=== PATIENT | female | born 1960 | race Caucasian/White ===

== ENCOUNTER 2018-10-31 04:03 | Emergency (ER) | payer BC ==
[2018-10-31] MEDS ORDERED: NA CHLORIDE 0.9% 1,000 ML ONE (04:39)
[2018-10-31 05:20] LABS: Absolute Lymphocytes (CBC) 1.2 K/uL (0.7-4.9); Absolute Monocytes 0.5 K/uL (0.1-1.3); Absolute Neutrophil 8.1 K/uL (1.8-8.0); Basophils % 0.6 % (0-1.3); Hematocrit 41.2 % (36.0-45.0); Lymphocytes % 12.2 % (15.3-44.8); MCH 33.5 pg (27.0-35.0); MCV 98.4 fL (80-100); MPV 9.6 fL (7.6-11.3); Monocytes % 5.3 % (3.3-12.3); RBC Red Blood Cell Count 4.18 M/uL (3.86-4.86)
[2018-10-31 05:44] LABS: Potassium 4.7 mmol/L (3.5-5.1)
--- NOTE | 2018-10-31 05:49 | ER ---
Nurse's Notes [facility] Name: Heather Dexter Age: 58 yrs Sex: Female : 1960 Arrival Date: 10/31/2018 Time: 04:04 Bed 7 Private MD: Diagnosis: Hyperglycemia, unspecified Presentation: 10/31 04:20 Presenting complaint: Patient states: Patient reports her blood sugar was 336 this AM, ea reports she has been eating too many carbs, hasn't been sleeping and received Cortizone shots yesterday. Transition of care: patient was not received from another setting of care. Onset of symptoms was October 31, 2018. Risk Assessment: Do you want to hurt yourself or someone else? Patient reports no desire to harm self or others. Initial Sepsis Screen: Does the patient meet any 2 criteria? No. Patient's initial sepsis screen is negative. Does the patient have a suspected source of infection? No. Patient's initial sepsis screen is negative. Care prior to arrival: None. 04:20 Method Of Arrival: Ambulatory ea 04:20 Acuity: MOISÉS 4 ea Triage Assessment: 04:24 General: Appears in no apparent distress. Behavior is calm, cooperative, appropriate ea for age. Pain: Denies pain. Neuro: Level of Consciousness is awake, alert, obeys commands, Oriented to person, place, time, situation. Cardiovascular: Patient's skin is warm and dry. Respiratory: Airway is patent Respiratory effort is even, unlabored, Respiratory pattern is regular, symmetrical. Respiratory:. GI: No signs and/or symptoms were reported involving the gastrointestinal system. Derm: Skin is pink, warm \T\ dry. Musculoskeletal: Circulation, motion, and sensation intact. Historical: - Allergies: 04:24 meperidine HCl; ea 04:24 PENICILLINS; ea 04:24 sulfamethoxazole; ea 04:24 sulfamethoxazole-trimethoprim; ea 04:24 TRIMETHOPRIM; ea - Home Meds: 04:24 lisinopril 10 mg Oral tab 1 tab once daily [Active]; Janumet 100-1,000 Oral 1 tab daily ea [Active]; - PMHx: 04:24 Hypertension; Diabetes - NIDDM; ea - PSHx: 04:24 None; ea - Immunization history:: Adult Immunizations up to date. - Social history:: Smoking status: Patient/guardian denies using tobacco. - Ebola Screening: : No symptoms or risks identified at this time. Screenin:26 Abuse screen: Denies threats or abuse. Nutritional screening: No deficits noted. ea Tuberculosis screening: No symptoms or risk factors identified. Fall Risk None identified. Assessment: 04:25 Reassessment: see triage assessment. ea 05:50 Reassessment: Patient and/or family updated on plan of care and expected duration. Pain ea level reassessed. Patient is alert, oriented x 3, equal unlabored respirations, skin warm/dry/pink. Patient states feeling better. Vital Signs: 04:25 BP 165 / 78; Pulse 94; Resp 18; Temp 98.7; Pulse Ox 99% ; Weight 92.08 kg; Height 5 ft. ea 8 in. (172.72 cm); Pain 0/10; 05:45 BP 135 / 70; Pulse 80; Resp 18; Pulse Ox 99% on R/A; ea 04:25 Body Mass Index 30.87 (92.08 kg, 172.72 cm) ea ED Course: 04:04 Patient arrived in ED. am2 04:14 Domenic Cruz MD is Attending Physician. gs 04:20 Myrna Hernandez RN is Primary Nurse. ea 04:23 Triage completed. ea 04:26 Patient has correct armband on for positive identification. Bed in low position. Call ea light in reach. Side rails up X2. 04:28 Arm band placed on right wrist. Patient placed in an exam room, on a stretcher, on ea pulse oximetry. 05:01 Inserted saline lock: 20 gauge in right forearm, using aseptic technique. Blood ds4 collected. 05:49 No provider procedures requiring assistance completed. ea 06:12 IV discontinued, intact, bleeding controlled, No redness/swelling at site. Pressure ea dressing applied. Administered Medications: 05:01 Drug: NS 0.9% 1000 ml Route: IV; Rate: 1 bolus; Site: left antecubital; ea 05:38 Follow up: Response: No adverse reaction; IV Status: Completed infusion; IV Intake: ea 1000ml Point of Care Testing: Blood Glucose: 05:49 Blood Glucose: 269 mg/dL; ea Ranges: Intake: 05:38 IV: 1000ml; Total: 1000ml. ea Outcome: 05:47 Discharge ordered by . gs 06:16 Discharged to home ambulatory. ea 06:16 Condition: improved 06:16 Discharge instructions given to patient, Instructed on discharge instructions, follow up and referral plans. Demonstrated understanding of instructions, follow-up care. 06:17 Patient left the ED. ea Signatures: Colt Gonzalez4 Sandy Calles am2 Myrna Hernandez, RN RN Domenic Waldron MD MD
--- NOTE | 2018-10-31 05:50 | EDPHYS ---
Physician Documentation [facility] Name: Heather Dexter Age: 58 yrs Sex: Female : 1960 Arrival Date: 10/31/2018 Time: 04:04 Bed 7 Private MD: ED Physician Domenic Cruz HPI: 10/31 04:32 This 58 yrs old Female presents to ER via Ambulatory with complaints of High gs Blood Sugar. 04:32 The patient or guardian reports hyperglycemia, that was potentially precipitated by gs eating. Onset: The symptoms/episode began/occurred gradually, 1 week(s) ago. Associated signs and symptoms: Pertinent negatives: vomiting. Current symptoms: In the emergency department the patient's symptoms are unchanged from the initial presentation. The patient has experienced similar episodes in the past, a few times. Historical: - Allergies: 04:24 meperidine HCl; ea 04:24 PENICILLINS; ea 04:24 sulfamethoxazole; ea 04:24 sulfamethoxazole-trimethoprim; ea 04:24 TRIMETHOPRIM; ea - Home Meds: 04:24 lisinopril 10 mg Oral tab 1 tab once daily [Active]; Janumet 100-1,000 Oral 1 tab daily ea [Active]; - PMHx: 04:24 Hypertension; Diabetes - NIDDM; ea - PSHx: 04:24 None; ea - Immunization history:: Adult Immunizations up to date. - Social history:: Smoking status: Patient/guardian denies using tobacco. - Ebola Screening: : No symptoms or risks identified at this time. ROS: 04:32 All other systems are negative. gs Exam: 04:32 Head/Face: Normocephalic, atraumatic. Eyes: Pupils equal round and reactive to light, gs extra-ocular motions intact. Lids and lashes normal. Conjunctiva and sclera are non-icteric and not injected. Cornea within normal limits. Periorbital areas with no swelling, redness, or edema. ENT: Nares patent. No nasal discharge, no septal abnormalities noted. Tympanic membranes are normal and external auditory canals are clear. Oropharynx with no redness, swelling, or masses, exudates, or evidence of obstruction, uvula midline. Mucous membranes moist. Neck: Trachea midline, no thyromegaly or masses palpated, and no cervical lymphadenopathy. Supple, full range of motion without nuchal rigidity, or vertebral point tenderness. No Meningismus. Chest/axilla: Normal chest wall appearance and motion. Nontender with no deformity. No lesions are appreciated. Cardiovascular: Regular rate and rhythm with a normal S1 and S2. No gallops, murmurs, or rubs. Normal PMI, no JVD. No pulse deficits. Respiratory: Lungs have equal breath sounds bilaterally, clear to auscultation and percussion. No rales, rhonchi or wheezes noted. No increased work of breathing, no retractions or nasal flaring. Abdomen/GI: Soft, non-tender, with normal bowel sounds. No distension or tympany. No guarding or rebound. No evidence of tenderness throughout. Back: No spinal tenderness. No costovertebral tenderness. Full range of motion. Skin: Warm, dry with normal turgor. Normal color with no rashes, no lesions, and no evidence of cellulitis. MS/ Extremity: Pulses equal, no cyanosis. Neurovascular intact. Full, normal range of motion. Neuro: Awake and alert, GCS 15, oriented to person, place, time, and situation. Cranial nerves II-XII grossly intact. Motor strength 5/5 in all extremities. Sensory grossly intact. Cerebellar exam normal. Normal gait. 04:32 Constitutional: The patient appears alert, awake. Vital Signs: 04:25 BP 165 / 78; Pulse 94; Resp 18; Temp 98.7; Pulse Ox 99% ; Weight 92.08 kg; Height 5 ft. ea 8 in. (172.72 cm); Pain 0/10; 05:45 BP 135 / 70; Pulse 80; Resp 18; Pulse Ox 99% on R/A; ea 04:25 Body Mass Index 30.87 (92.08 kg, 172.72 cm) ea MDM: 04:23 Patient medically screened. gs 04:32 Differential diagnosis: DKA, hyperglycemia. Data reviewed: vital signs, nurses notes. gs Response to treatment: the patient's symptoms have markedly improved after treatment, and as a result, I will discharge patient. 05:47 Counseling: I had a detailed discussion with the patient and/or guardian regarding: the gs historical points, exam findings, and any diagnostic results supporting the discharge/admit diagnosis, the need for outpatient follow up. 10/31 04:24 Order name: CBC with Diff; Complete Time: 05:38 gs 10/31 04:24 Order name: Basic Metabolic Panel; Complete Time: 05:46 10/31 05:47 Order name: Finger Stick; Complete Time: 05:48 Administered Medications: 05:01 Drug: NS 0.9% 1000 ml Route: IV; Rate: 1 bolus; Site: left antecubital; ea 05:38 Follow up: Response: No adverse reaction; IV Status: Completed infusion; IV Intake: ea 1000ml Point of Care Testing: Blood Glucose: 05:49 Blood Glucose: 269 mg/dL; ea Ranges: Critical Glucose Levels:Adult <50 mg/dl or >400 mg/dl <40 mg/dl or >180 mg/dl Disposition: 10/31/18 05:47 Discharged to Home. Impression: Hyperglycemia, unspecified. - Condition is Stable. - Discharge Instructions: Hyperglycemia. - Medication Reconciliation Form, Thank You Letter, Antibiotic Education, Prescription Opioid Use form. - Follow up: Emergency Department; When: 2 - 3 days; Reason: Re-evaluation by your physician. Signatures: Dispatcher [employer] Myrna Bentley RN RN ea Starr, Gregory, MD MD Corrections: (The following items were deleted from the chart) 06:17 05:47 10/31/2018 05:47 Discharged to Home. Impression: Hyperglycemia, unspecified. ea Condition is Stable. Forms are Medication Reconciliation Form, Thank You Letter, Antibiotic Education, Prescription Opioid Use. Follow up: Emergency Department; When: 2 - 3 days; Reason: Re-evaluation by your physician.
[2018-10-31 06:27] VITALS: TEMP 98.7; O2SAT 99
[2018-10-31 06:28] VITALS: BP 135/70
== END 2018-10-31 06:17 | disposition home or self-care (01) ==
LOC: ER 04:03
DX: E11.65 Type 2 diabetes mellitus with hyperglycemia (principal); I10 Essential (primary) hypertension; Z88.0 Allergy status to penicillin; Z88.2 Allergy status to sulfonamides; Z88.8 Allergy status to other drugs, medicaments and biological substances
CPT/HCPCS: 36415; 80048; 82962; 85025; 96360; 99284; J7030

== ENCOUNTER 2023-10-22 19:16 | Observation (INO) | payer BC, OTHER ==
--- OUTSIDE RECORDS SUMMARY | 2023-10-22 19:19 | XMS REPORT | Clinical Summary ---
:1960 Author Organization [facility] MD [facility] [facility] Address [address] [place] [address] Care Team Providers Name Role Phone Wayne Richardson MD Primary Care Provider Allergies Active Allergy Reactions Criticality Noted Date Comments Sulfamethoxazole-Trimethoprim 08/21/2018 Meperidine 08/21/2018 Lactose 08/21/2018 Penicillins 08/21/2018 Sulfa (Sulfonamide Antibiotics) 8 Medications Medication Sig Dispensed Refills Start Date End Date Status traMADol (ULTRAM) 50 TAKE ONE (1) 0 07/29/2018 Active mg tablet TABLET(S) BY MOUTH EVERY SIX HOURS NEEDED FOR PAIN. GARLIC ORAL 3,000 mg. 0 06/01/2014 Active lidya 0 Active primrose/linoleic/ga moleni (PRIMROSE OIL ORAL) diazePAM (VALIUM) 5 TAKE ONE (1) 0 06/16/2018 Active mg tablet TABLET(S) BY MOUTH NEEDED AROUND THE TIME OF SURGERY. eprim/linoleic/gamol 0 12/02/2015 Active enic/cranb (EVENING PRIMROSE OIL-CRANBERRY ORAL) calcium 0 Active carbonate-vitamin D3 600 mg(1,500mg) -200 unit per tablet ascorbate 2,000 mg. 0 01/02/2016 Active Ny-frbjgdnd-uvj 1,000 mg pwep glipiZIDE TAKE ONE (1) 0 03/01/2018 Active (GLUCOTROL) 5 mg TABLET(S) BY MOUTH tablet TWICE A DAY. lisinopril 10 mg. 0 02/24/2018 Active (PRINIVIL,ZESTRIL) 10 mg tablet LUTEIN 40 mg. 0 Active EXTRACT-ZEAXANTHIN EXT ORAL MAGNESIUM ORAL 0 Activ e metFORMIN 500 mg. 0 05/12/2018 Active (GLUCOPHAGE) 500 mg tablet NIACINAMIDE ORAL Niacinamide B-3 0 Active 100mg omega 9-aan-hda-fish 1,000 mg. 0 Active oil 183.3 mg-75 mg -91.6 mg-306 mg cap omeprazole 40 mg. 0 02/12/2017 Active (PriLOSEC) 40 MG capsule coenzyme Q10 (CO 200 mg. 0 Act irwin Q-10) 200 mg capsule VITAMIN A ORAL 0 08/02/2014 Acti ve vitamin B complex daily. 0 Ac tive capsule LOTEMAX 0.5 % APPLY TO THE 2 03/31/2018 Ac tive ophthalmic ointment AFFECTED AREAS OF BOTH EYES THREE TIMES PER DAY. Active Problems Problem Noted Date Diagnosed Date Endometrial carcinoma 08/21/2018 Cancer Staging: Pathologic stage from : FIGO Stage II (T2, N0, cM0) - Signed by Carey Stover PA on 08/21/2018 Body mass index 30+ - obesity 10/03/2016 Type 2 diabetes mellitus without complication 08/31/2016 Essential hypertension 08/31/2016 Surgical History Surgery Date Site/Laterality Comments TOTAL ABDOMINAL HYSTERECTOMY W/ BILATERAL 10/03/2016 SALPINGOOPHORECTOMY Medical History Medical History Date Comments Diabetes mellitus Hypertension Endometrial carcinoma Anxiety Family History Medical History Relation Name Comments Depression Father Hyperlipidemia Father Hypertension Father -Breast cancer Maternal Grandmother -Gynecology (Ovary, Endometrial, Cervix, Vagina) Mother Diabetes Mother Hyperlipidemia Mother Hypertension Mother Relation Name Status Comments Father Maternal Grandmother Mother Social History Tobacco Use Types Packs/Day Years Used Date Smoking Tobacco: Never Assessed Sex and Gender Information Value Date Recorded Sex Assigned at Not on file Gender Identity Not on file Sexual Orientation Not on file Obstetrics History Last Filed Vital Signs Not on file Plan of Treatment Health Maintenance Due Date Last Done Comments COVID-19 Vaccination (#1) 04/16/1961 Results Not on fileafter 10/22/2022 Care Teams Programming Director Relationship Specialty Start Date End Date Wayne Richardson MD PCP - General Gynecological Oncology 08/21/18 [address] [place] [address]
--- OUTSIDE RECORDS SUMMARY | 2023-10-22 19:20 | XMS REPORT | Continuity of Care Document ---
:1960 Author Organization [facility] t Address [address] [place] [address] [address] [place] [address] Care Team Providers Name Role Phone Pcp, Patient Does Not Have A Primary Care Physician [id number] Bree Muñoz Attending Clinician Unavailable Linda Gilliam Attending Clinician Unavailable David Goss Attending Clinician Unavailable Doctor Unassigned, [place] Attending Clinician Unavailable Savita Stover PA-C Attending Clinician Susie Graham MD Attending Clinician SUSIE GRAHAM Attending Clinician Unavailable SUSIE GRAHAM Attending Clinician Unavailable SAVITA STOVER Attending Clinician Unavailable Adelso Mtz DO Attending Clinician Payers Payer Name Policy Type Policy Number Effective Date Expiration Date S ource Problems Condition Condition Condition Status Onset Resolution Last Treating Co mments Source Name Details Category Date Date Treatment Clinician Date Endometria Endometria Disease Active U nivers l l 9-20 ity of carcinoma carcinoma 00:00: Danish ernst 00 MD [facility] Mass of Mass of Disease Active Overview: Univ ers right hand right hand 7 Formattin ity of 00:00: g of this 00 note Medical might be Branch different from the original. 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 2-04 ity of syndrome, syndrome, 00:[place] 00 [place] Numbness Numbness Disease Active 2015-12 Unive rs of right of right 2-04 ity of hand hand 00:00: Medical Branch Right Right Disease Active 2015-12 Univers elbow pain elbow pain 2-04 it y of 00:00: Medical Branch Endometria Endometria Disease Active 2015-12 U nivers l cancer, l cancer, 12-03 ity of grade I grade I 00:00: [place] [facility] Body mass Body mass Disease Active 2015-12 Uni vers index 30+ index 30+ 1- ity of - obesity - obesity 00:00: Danish s 00 MD [facility] Palpitatio Palpitatio Disease Active U nivers ns ns 9 ity of 00:00: [place] [facility] Type 2 Type 2 Disease Active Univers diabetes diabetes 08-31 ity of mellitus mellitus 00:00: [place] without without 00 complicati complicati An [facility] Essential Essential Disease Active Uni vers hypertensi hypertensi 08-31 it y of on on 00:00: 00 MD [facility] Trigger Trigger Diagnosis Active Commo n middle middle [facility] finger of finger of - [facility] I right hand right hand [facility] Left hand Left hand Diagnosis Active C om[facility] pain pain [place] [facility] Right hand Right hand Diagnosis Active Common pain pain [place] [facility] Trigger Trigger Diagnosis Active Commo n middle middle [facility] finger of finger of - CH I left hand left hand [facility] Allergies, Adverse Reactions, Alerts Allergy Allergy Status Severity Reaction(s) Onset Inactive Treating Comm ents Source Name Type Date Date Clinician Sulfamet Propensi Active Univer s hoxazole ty to 9-20 ity of -Trimeth adverse 00:00: [place] oprim reaction 00 MD [facility] Meperidi Propensi Active Univer s ne ty to 9-20 ity of adverse 00:00: [place] reaction 00 MD [facility] Lactose Propensi Active Univers ty to 9-20 ity of adverse 00:00: [place] reaction 00 MD [facility] Penicill Propensi Active Univer s ins ty to 9-20 ity of adverse 00:00: [place] reaction 00 MD [facility] Sulfa Propensi Active Univers (Sulfona ty to 9-20 ity of mide adverse 00:00: [place] Antibiot reaction 00 ics) [facility] CLONIDIN DRUG Active Unknown-Cmnt 2015-12 Un gurmeet E INGREDI 0-26 ity of 00:00: [place] 00 Medical Branch Clonidin Propensi Active Unknown - 2015-12 Excessive Univers e ty to See comments 0-26 sleep ity of adverse 00:00: [place] reaction 00 Medical s to Branch drug Meperidi Propensi Active Dizziness Uni vers ne Hcl ty to 5-27 ity of adverse 00:00: [place] reaction Medical s Branch Lactose Propensi Active Other - See Sinus Un gurmeet ty to comments 527 congestio ity o f adverse 00:00: n [place] reaction 00 Medical s Branch Penicill Propensi Active Rash Univer s ins ty to 5-27 ity of adverse 00:00: [place] reaction 00 Medical s Branch Sulfa Propensi Active Rash Univers (Sulfona ty to 5-27 ity of mide adverse 00:00: [place] Antibiot reaction 00 Medica l ics) s Branch CIGARETT DRUG Active Other-Cmnt Univ ers E SMOKE INGREDI 5-27 ity of 00:00: [place] 00 Medical Branch MEPERIDI DRUG Active Dizziness Unive rs NE HCL INGREDI 5-27 ity of 00:00: [place] 00 Medical Branch LACTOSE DRUG Active Other-Cmnt Unive rs INGREDI 5-27 ity of 00:00: [place] 00 Medical Branch PENICILL Drug Active Rash Univers INS Class 5-27 ity of 00:00: [place] 00 Medical Branch SULFA Drug Active Rash Univers (SULFONA Class 5-27 ity of MIDE 00:00: [place] ANTIBIOT 00 Medical ICS) Branch Penicill Propensi Active Rash Univer s ins ty to 5-27 ity of adverse 00:00: [place] reaction 00 Medical s Branch Sulfa Propensi Active Rash Univers (Sulfona ty to 04-27 ity of mide adverse 00:00: [place] Antibiot reaction 00 Medica l ics) s Branch Cigarett Propensi Active Other - See Sinus U nivers e Smoke ty to comments 04-27 congestio ity of adverse 00:00: n [place] reaction 00 Medical s Branch Demerol Adverse Active Info Not Common Reaction Available [facility] Bactrim Adverse Active Info Not Common Reaction Available [facility] Family History Family Member Diagnosis Comments Start Date Stop Date Source Natural father Depression [facility] [place] [facility] Natural father Hyperlipidemia [facility] [place] [facility] [place] Natural father Hypertension Universi ty [facility] [place] [facility] Maternal -Breast cancer [place] [facility] [place] [facility] Natural mother -Gynecology (Ovary, U niversity of Endometrial, [place], [place] Vagina[place] [facility] Natural mother Diabetes [facility] [place] [facility] Natural mother Hyperlipidemia [facility] [place] [facility] Natural mother Hypertension Universi ty [facility] [place] [facility] Social History Social Habit Start Date Stop Date Quantity Comments Source Sexual orientation [facility] MD Josh [facility] Alcohol intake 2020-12-14 2020-12-14 0 /d University of 00:00:00 00:00:00 [facility] History of Social 2018-08-23 2018-08-23 Univers ity of function 00:00:00 00:00:00 [place] MD [facility] Tobacco use and 2016-04-27 2016-04-27 Smokeless Universit y of exposure 00:00:00 00:00:00 tobacco non-user [facility] Sex Ass[birth year] At [birth year] Universit y of 00:00:00 00:00:00 [place] MD [facility] Smoking Status Start Date Stop Date Source Never smoked tobacco [facility] Medications Ordered Filled Start Stop Current Ordering Indication Dosage Frequency Signature Comments Components Source Medication Medication Date Date Medication? Clinician (SIG) Name Name estradioL 2020-12 Yes [id number] 1g Insert 1 g Univers 0.01 % (0.1 2-09 into ity of mg/gram) 00:00: vagina 2 [place] vaginal 00 (two) Medical cream times per Branch week. estradioL 2020-12 Yes [id number] 1g Insert 1 g Univers 0.01 % (0.1 2-09 into ity of mg/gram) 00:00: vagina 2 [place] vaginal 00 (two) Medical cream times per Branch week. estradioL 2020-12- No [id number] 1g Insert 1 g Univers 0.01 % (0.1 2-09 12-09 into ity of mg/gram) 00:00: 00:00 vagina 2 [place] vaginal 00 :00 (two) Medical cream times per Branch week. estradioL 2020-12- No [id number] 1g Insert 1 g Univers 0.01 % (0.1 2- 12-09 into ity of mg/gram) 00:00: 00:00 vagina 2 [place] vaginal 00 :00 (two) Medical cream times per Branch week. Estradiol 2020-12- No [id number] 10ug Insert 1 Univers (YUVAFEM) 01-1008 tablet ity of 10 mcg 00:00: 00:00 into [place] tablet 00 :00 vagina 2 Medical (two) Branch times per week. CALCIUM Yes Univers CARBONATE/V 1-13 ity of ITAMIN D3 11:32: [place] (VITAMIN 32 Medical D-3 ORAL) Branch CALCIUM Yes Univers CARBONATE/V 1-13 ity of ITAMIN D3 11:32: [place] (VITAMIN 32 Medical D-3 ORAL) Branch CALCIUM Yes Univers CARBONATE/V 1-13 ity of ITAMIN D3 11:32: [place] (VITAMIN 32 Medical D-3 ORAL) Branch LICORICE Yes Take by Univer s ROOT ORAL 1-15 mouth. ity of 11:42: [place] Medical [facility] LICORICE Yes Take by Univer s ROOT ORAL 1-15 mouth. ity of 11:42: [place] [facility] LICORICE Yes Take by Univer s ROOT ORAL 1-15 mouth. ity of 11:42: [place] [id number] Medical Branch EVENING Yes Univers PRIMROSE 7-10 ity of OIL 16:06: [place] (EVENING 30 Medical PRIMROSE Branch ORAL) MAGNESIUM Yes Univers ORAL 7-10 ity of 16:06: [place] 30 Medical Branch NIACINAMIDE 2019-0 Yes Niacinamid Univers ORAL 7-10 e B-3 ity of 16:06: 100mg [address] OMEGA-3/DHA 2019-0 Yes 1000mg Take 1,000 Univers /EPA/FISH 7-10 mg by ity of OIL 16:06: mouth [place] (OMEGA-3 30 daily. Medical FISH OIL Branch ORAL) ACETYLCARNI 2019-0 Yes 1600mg 1,600 mg Univers TIN/ALPHA 7-10 daily. ity of LIPOIC AC 16:06: [place] (ACETYLCARN 30 Medical ITIN HCL-A Branch LIPOIC AC ORAL) VITAMIN B 2019-0 Yes daily. Univer s COMPLEX/FOL 7-10 ity of IC ACID (B 16:06: [place] COMPLEX 100 30 Medical ORAL) Branch UBIDECARENO 0 Yes 200mg 200 mg at Univers NE (CO Q-10 7-10 bedtime. ity of ORAL) 16:06: [address] LUTEIN 2019-0 Yes 40mg 40 mg Univers EXTRACT/ADDISON 7-10 daily. ity of XANTHIN EXT 16:06: [place] (LUTEIN-ADDISON 30 Medical XANTHIN Branch ORAL) EVENING 2019-0 Yes Univers PRIMROSE 7-10 ity of OIL 16:06: [place] (EVENING 30 Medical PRIMROSE Branch ORAL) MAGNESIUM [id number] Yes Univers ORAL 7-10 ity of 16:06: [address] NIACINAMIDE 2019-0 Yes Niacinamid Univers ORAL 7-10 e B-3 ity of 16:06: 100mg [address] OMEGA-3/DHA 2019-0 Yes 1000mg Take 1,000 Univers /EPA/FISH 7-10 mg by ity of OIL 16:06: mouth [place] (OMEGA-3 30 daily. Medical FISH OIL Branch ORAL) ACETYLCARNI 2019-0 Yes 1600mg 1,600 mg Univers TIN/ALPHA 7-10 daily. ity of LIPOIC AC 16:06: [place] (ACETYLCARN 30 Medical ITIN HCL-A Branch LIPOIC AC ORAL) VITAMIN B 2019-0 Yes daily. Univer s COMPLEX/FOL 7-10 ity of IC ACID (B 16:06: [place] COMPLEX 100 30 Medical ORAL) Branch UBIDECARENO [id number] Yes 200mg 200 mg at Univers NE (CO Q-10 7-10 bedtime. ity of ORAL) 16:06: [address] LUTEIN 2019- Yes 40mg 40 mg Univers EXTRACT/ADDISON 7-10 daily. ity of XANTHIN EXT 16:06: [place] (LUTEIN-ADDISON 30 Medical XANTHIN Branch ORAL) EVENING 2019- Yes Univers PRIMROSE 7-10 ity of OIL 16:06: [place] (EVENING 30 Medical PRIMROSE Branch ORAL) MAGNESIUM 2019- Yes Univers ORAL 7-10 ity of 16:06: [address] NIACINAMIDE 2019 Yes Niacinamid Univers ORAL 7-10 e B-3 ity of 16:06: 100mg [address] OMEGA-3/DHA 2019 Yes 1000mg Take 1,000 Univers /EPA/FISH 7-10 mg by ity of OIL 16:06: mouth [place] (OMEGA-3 30 daily. Medical FISH OIL Branch ORAL) ACETYLCARNI Yes 1600mg 1,600 mg Univers TIN/ALPHA 7-10 daily. ity of LIPOIC AC 16:06: [place] (ACETYLCARN 30 Medical ITIN HCL-A [place] LIPOIC AC ORAL) VITAMIN B 2019 Yes daily. Univer s COMPLEX/FOL 7-10 ity of IC ACID (B 16:06: [place] COMPLEX 100 30 Medical ORAL) Branch UBIDECARENO Yes 200mg 200 mg at [facility] NE (CO Q-10 7-10 bedtime. ity of ORAL) 16:06: [address] LUTEIN Yes 40mg 40 mg Univers EXTRACT/ADDISON 7-10 daily. ity of XANTHIN EXT 16:06: [place] (LUTEIN-ADDISON 30 Medical XANTHIN Branch ORAL) lidya Yes Univers primrose/li 9-20 ity of noleic/gamo 16:25: [place] cesar 38 (PRIMROSE [place] OIL ORAL) n [facility] calcium Yes Univers carbonate-v 9-20 ity of itamin D3 16:25: [place] 600 38 mg(1,500mg) Anderso -200 unit n per tablet Cancer Center LUTEIN Yes 40mg 40 mg. Univers EXTRACT-ADDISON 9-20 ity of XANTHIN EXT 16:25: [facility] MAGNESIUM 2018- Yes Univers ORAL 9-20 ity of 16:25: [place] Loreta [facility] NIACINAMIDE Yes Niacinamid Univers ORAL - e B-3 ity of 16:25: 100mg [place] 38 [facility] omega 2017- Yes 1000mg 1,000 mg. Unive rs 3-dha-epa-f 08-21 ity of tammie oil 16:25: [place] 183.3 mg-75 38 MD mg -91.6 Anderso mg-306 mg n cap [facility] coenzyme Yes 200mg 200 mg. Unive rs Q10 (CO 08-21 ity of Q-10) 200 16:25: [place] mg capsule 38 [facility] vitamin B 2018- Yes daily. Univer s complex 9-20 ity of capsule 16:25: [place] 38 [facility] traMADol Yes TAKE ONE Unive rs (ULTRAM) 50 8-28 (1) ity of mg tablet 00:00: TABLET(S) [place] 00 BY MOUTH MD EVERY SIX Anderso HOURS n NEEDED FOR Cancer PAIN. [place] diazePAM 5 Yes TAKE ONE Uni vers mg tablet 7-16 (1) ity of 00:00: TABLET(S) [place] 00 BY MOUTH Medical NEEDED Branch AROUND THE TIME OF SURGERY. diazePAM 5 Yes TAKE ONE Uni vers mg tablet 7-16 (1) ity of 00:00: TABLET(S) [place] 00 BY MOUTH Medical NEEDED Branch AROUND THE TIME OF SURGERY. diazePAM 5 Yes TAKE ONE Uni vers mg tablet 7-16 (1) ity of 00:00: TABLET(S) [place] 00 BY MOUTH Medical NEEDED Branch AROUND THE TIME OF SURGERY. diazePAM Yes TAKE ONE Unive rs (VALIUM) 5 7-16 (1) ity of mg tablet 00:00: TABLET(S) [place] 00 BY MOUTH MD NEEDED [place] AROUND THE n TIME OF Cancer SURGERY. [place] metFORMIN Yes 1000mg Take 1,000 Univers 500 mg 6-11 mg by ity of tablet 00:00: mouth [place] 00 daily. Medical Branch metFORMIN 2018- Yes 1000mg Take 1,000 Univers 500 mg 6-11 mg by ity of tablet 00:00: mouth [place] 00 daily. Medical Branch metFORMIN Yes 1000mg Take 1,000 Univers 500 mg 6-11 mg by ity of tablet 00:00: mouth [place] 00 daily. Medical Branch metFORMIN Yes 500mg 500 mg. Univ ers (GLUCOPHAGE 6-11 ity of ) 500 mg 00:00: [place] tablet 00 MD [facility] LOTEMAX 0.5 Yes APPLY TO Un gurmeet % 4-30 THE ity of ophthalmic 00:00: AFFECTED [place] as ointment 00 AREAS OF MD BOTH EYES [place] THREE n TIMES PER Cancer DAY. Center glipiZIDE 5 Yes TAKE ONE Un gurmeet mg tablet 3-31 (1) ity of 00:00: TABLET(S) [place] 00 BY MOUTH Medical TWICE A Branch DAY. glipiZIDE 5 Yes TAKE ONE Un gurmeet mg tablet 3-31 (1) ity of 00:00: TABLET(S) [place] 00 BY MOUTH Medical TWICE A Branch DAY. glipiZIDE 5 Yes TAKE ONE Un gurmeet mg tablet 3-31 (1) ity of 00:00: TABLET(S) [place] 00 BY MOUTH Medical TWICE A Branch DAY. glipiZIDE Yes TAKE ONE Univ ers (GLUCOTROL) 3-31 (1) ity of 5 mg tablet 00:00: TABLET(S) [place] 00 BY MOUTH [facility]ICE [facility] lisinopril Yes [id number] 10mg Take 1 U nivers 10 mg 3-26 tablet by ity of tablet 00:00: mouth [place] 00 daily. Medical Branch lisinopril Yes [id number] 10mg Take 1 U nivers 10 mg 3-26 tablet by ity of tablet 00:00: mouth [place] 00 daily. Medical Branch lisinopril Yes [id number] 10mg Take 1 U nivers 10 mg 3-26 tablet by ity of tablet 00:00: mouth [place] 00 daily. Medical Branch lisinopril Yes 10mg 10 mg. Unive rs (PRINIVIL,Z 3-26 ity of ESTRIL) 10 00:00: [place] mg tablet 00 MD [facility] omeprazole 2017-0 Yes 40mg 40 mg. Unive rs (PriLOSEC) 3-14 ity of 40 MG 00:00: [place] capsule 00 MD [facility] sitaGLIPtin 2016- Yes [id number] 1{tbl} Take 1 Univers -metformin 2-12 tablet by ity of (DECUMET 00:00: mouth [place] XR) 00 daily. Medical 100-1,000 Branch mg per tablet sitaGLIPtin 2015-12 Yes [id number] 1{tbl} Take 1 Univers -metformin 2-12 tablet by ity of (DECUMET 00:00: mouth [place] XR) 00 daily. Medical 100-1,000 Branch mg per tablet sitaGLIPtin 2015-12 Yes [id number] 1{tbl} Take 1 Univers -metformin 2-12 tablet by ity of (DECUMET 00:00: mouth [place] XR) 00 daily. Medical 100-1,000 Branch mg per tablet ASCORBATE Yes 2000mg 2,000 mg. U nivers CALCIUM 2-01 ity of (VITAMIN C 00:00: [place] ORAL) 00 Medical Branch ASCORBATE Yes 2000mg 2,000 mg. U nivers CALCIUM 2-01 ity of (VITAMIN C 00:00: [place] ORAL) Medical Branch ASCORBATE Yes 2000mg 2,000 mg. U nivers CALCIUM 2-01 ity of (VITAMIN C 00:00: [place] ORAL) 00 Medical [place] ascorbate Yes 2000mg 2,000 mg. U nivers Ca-multivit 2-01 ity of -min 1,000 00:00: [place] mg pwep 00 MD [facility] CRANBERRY Yes Univers FRUIT 1- ity of EXTRACT 00:00: [place] (CRANBERRY 00 Medical ORAL) Branch CRANBERRY Yes Univers FRUIT 1- ity of EXTRACT 00:00: [place] (CRANBERRY 00 Medical ORAL) Branch CRANBERRY Yes Univers FRUIT 1-01 ity of EXTRACT 00:00: [place] (CRANBERRY 00 Medical ORAL) Branch eprim/linol Yes Univer s eic/gamolen 12-02 ity of ic/cranb 00:00: [place] (EVENING 00 MD REFUGIO LINN-CARLOSBER n [facility] VITAMIN A Yes Univers ORAL 08-02 ity of 00:00: [place] 00 [facility] VITAMIN A Yes Univers ORAL 08-02 ity of 00:00: [place] 00 [facility] VITAMIN A Yes Univers ORAL 08-02 ity of 00:00: [place] 00 [facility] VITAMIN A Yes Univers ORAL 08-02 ity of 00:00: [place] 00 MD [facility] GARLIC ORAL Yes 3000mg 3,000 mg. Univers 06-01 ity of :: [facility] GARLIC ORAL Yes 3000mg 3,000 mg. Univers 06-01 ity of 00:: [place] [facility] GARLIC ORAL Yes 3000mg 3,000 mg. Univers 06-01 ity of 00:00: [place] [facility] GARLIC ORAL Yes 3000mg 3,000 mg. Univers 06-01 ity of 00:00: [place] MD [facility] Lisinopril Lisinopril Yes Nahid TAKE ONE Common [place] (1) [facility] TABLET(S) - [facility] GlipiZIDE GlipiZIDE Yes Nahid TAKE ONE Common [place] (1) Spirit TABLET(S) - [facility]CE [facility] DAY[facility] Janumet XR Janumet XR Yes Nahid TAKE ONE Common [place] (1) Spirit TABLET(S) - [facility] ONCE [facility] WITH Medical EVENING Center MEAL. Metformin Metformin Yes Nahid TAKE ONE Common HCl HCl [place] (1) Spirit TABLET(S) - [facility] BY M[facility]TH [facility] ONCE [facility] WITH A Medical MEAL. Center Procedures This patient has no known procedures. Plan of Care Planned Activity Planned Date Details Comments Source Future Scheduled 2022-06-06 COVID-19 Vaccination Uni [facility] Test 04:30:47 (#1) [code = COVID-19 Cancer Vaccination (#1)] Center Encounters Start End Encounter Admission Attending Care Care Encounter Source Date/Time Date/Time Type Type Clinicians Facility Department ID 2023-06-03 Outpatient SEVERINO Muñoz [facility] [id number] Common 07:54:00 Bree [address] [facility] 2023-05-29 Outpatient SEVERINO Muñoz [facility] [id number] Common 08:03:00 Bree [address] [facility] 2023-02-14 Outpatient SEVERINO Muñoz [facility] [id number] Common 12:55:01 Bree [address]673 [facility] 2023-02-12 Outpatient Sylvia, STLMLC STLMLC [id number] Common 16:48:00 Bree [address]89 [facility] 2022-11-27 Outpatient Sylvia, STLMLC STLMLC [id number] Common 10:32:00 Bree [facility] 2022-07-25 Outpatient Sylvia, STLMLC STLMLC [id number] Common 07:08:00 Bree [facility] 2022-07-23 Outpatient Sylvia, STLMLC STLMLC [id number] Common 09:56:01 Bree [facility] 2022-06-27 Outpatient Sylvia, STLMLC STLMLC [id number] Common 16:05:00 Bree [facility] 2022-02-02 Outpatient Sylvia, STLMLC STLMLC [id number] Common 11:38:00 Bree [facility] 2021-12-27 Outpatient Sylvia, STLMLC STLMLC [id number] Common 14:39:12 Bree [facility] 2021-12-27 Outpatient Sylvia, STLMLC STLMLC [id number] Common 14:33:06 Bree [facility] 2021-12-27 Outpatient Sylvia, STLMLC STLMLC [id number] Common 13:45:18 Bree [address]6314 [facility] 2021-12-27 Outpatient Sylvia, STLMLC STLMLC [id number] Common 13:19:47 Bree 67297 [facility] 2021-12-27 Outpatient Sylvia, STLMLC STLMLC [id number] Common 13:16:47 Bree 16991 [facility] 2021-12-27 Outpatient Sylvia, STLMLC STLMLC [id number] Common 13:06:34 Bree 85130 [facility] 2021-12-27 Outpatient Sylvia, STLMLC STLMLC [id number] Common 13:02:43 Bree [address]5982 [facility] 2021-12-27 Outpatient Sylvia, STLMLC STLMLC [id number] Common 12:25:09 Bree [address]5420 [facility] 2021-12-27 Outpatient Sylvia, STLMLC STLMLC [id number] Common 12:24:27 Bree 90804 [facility] 2021-12-27 Outpatient Sylvia, STLMLC STLMLC [id number] Common 12:06:36 Bree 51092 [facility] 2021-12-27 Outpatient Sylvia, STLMLC STLMLC [id number] Common 11:59:48 Bree [address]1491 [facility] 2021-12-27 Outpatient Millender, STLMLC STLMLC [id number] Common 11:40:13 Linda [address]3856 [facility] 2021-12-27 Outpatient Millender, STLMLC STLMLC [id number] Common 11:39:54 Linda 61953 [facility] 2021-12-27 Outpatient Millender, STLMLC STLMLC [id number] Common 11:39:21 Linda 19827 [facility] 2021-12-27 Outpatient Goss, STLMLC STLMLC [id number] Common 11:31:52 David Matthew17 [facility] 2021-12-27 Outpatient Goss, STLMLC STLMLC [id number] Common 11:03:21 David Park27 [facility] 2021-12-27 Outpatient Goss, STLMLC STLMLC [id number] Common 11:02:42 David Carpio [facility] 2021-11-21 2021-11-21 Patient Doctor CHARO [id number] Univers 00:00:00 00:00:00 Secure Msg Unassigned, SKIP [id number] ity of [place] [facility] [id number] [place] [phone] [place] [address] Branch 2021-11-08 2021-11-08 KEHINDE [place] [id number] [facility] 00:00:00 00:00:00 Management Savita Brar HEALTH [id number] ity of CL[id number] [id number] [address] 2021-11-08 2021-11-08 Patient ANASTASIIA [place] [id number] Univers 00:00:00 00:00:00 Secure Msg Susie Brar HEALTH [id number] ity of CLINICS [id number] [id number] [address] 2021-11-07 2021-11-07 Office Dylan [facility] [id number] Univers 09:52:47 10:22:47 Visit Susie Brar HEALTH [id number] i ty of CLINICS [id number] [place] [id number] [address] 2021-11-07 2021-11-07 Outpatient SUSIE MIRANDA [facility] [id number] Univers 09:30:00 09:30:00 SUSIE GRAHAM sonya [facility] 2021-11-07 2021-11-07 Outpatient R SUSIE GRAHAM [facility] [id number] Univers 09:30:00 09:30:00 SUSIE GRAHAM sonya [facility] 2021-11-07 2021-11-07 Outpatient R SUSIE GRAHAM [facility] [id number] Univers 09:30:00 09:30:00 SUSIE GRAHAM sonya [facility] 2021-10-19 2021-10-19 Telephone Jolanta [facility] [id number] Univers 00:00:00 00:00:00 Savita Brar HEALTH [id number] i ty of CL[place]ICS [id number] [id number] [address] 2021-10-04 2021-10-04 Office Jolanta [facility] [id number] Univers 11:45:24 12:15:24 Visit Savita Brar HEALTH [id number] i ty of CL[place]ICS [id number] [id number] [address] 2021-10-04 2021-10-04 Outpatient Tahir STOVER [facility] [id number] Univers 11:30:00 11:30:00 SAVITA larios [facility] 2021-07-05 2021-07-05 Outpatient Tahir STOVER [facility] [id number] Univers 10:30:00 10:30:00 SAVITA itsonya [facility] 2021-02-07 2021-02-07 [facility] [id number] Univers 00:00:00 00:00:00 [facility] [id number] i ty of [facility] [id number] [place] GALBINHON [id number] [address] 2020-12-14 2020-12-14 Outpatient SUSIE MIRANDA [facility] [id number] Univers 11:30:00 11:30:00 SUSIE GRAHAM sonya [facility] 2020-12-14 2020-12-14 Telemivy ReyesSavita arndt [facility] [id number] Univers 07:39:17 08:09:17 ne Visit Susie Graham [facility] [id number] it[id number] [address] 2020-06-15 2020-06-15 Outpatient Tahir STOVER [facility] [id number] Univers 11:00:00 11:00:00 SAVITA michellesonya [facility] 2020-06-15 2020-06-15 Telemedici ANASTASIIA tSover[facility] [id number] Univers 08:50:48 09:20:48 ne Visit Savita [facility] [id number] [id number] [id number] [address] 2019-12-28 2019-12-28 Outpatient [facility] [id number] Common 08:00:00 08:00:00 t [facility] 2019-12-16 2019-12-16 Orders Doctor CHARO [id number] Univers 00:00:00 00:00:00 Only Unassigned, SKIP [id number] ity of [facility] [id number] [place] [id number] [facility] [address] 2019-06-12 2019-06-12 Patient Doctor CHARO [id number] Univers 00:00:00 00:00:00 Secure Msg Unassigned, SKIP [id number] ity of [facility] [id number] [place] [id number] [facility] [address] Results This patient has no known results.
[2023-10-22 20:20] LABS: Hematocrit 47.3 % (36.0-45.0); Lymphocytes % 18.9 % (15.3-44.8); MCV 98.4 fL (80-100); MPV 8.6 fL (7.6-11.3); Platelets 271 thou/uL (152-406); RBC Red Blood Cell Count 4.81 M/uL (3.86-4.86)
[2023-10-22 20:41] LABS: Troponin High Sensitivity 47.8 pg/mL (<58.9)
[2023-10-22 20:42] LABS: Potassium 4.3 mEq/L (3.5-5.1)
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
[2023-10-22] MEDS ORDERED: DIAZEPAM 10 MG/2 ML INJ SYRINGE ONE (21:21)
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
[2023-10-22] MEDS ORDERED: MORPHINE 4 MG/ML SYR ONE (23:03)
[2023-10-22] MEDS ORDERED: ACETAMINOPHEN 325 MG TABLET PO PRN (23:38)
[2023-10-22] MEDS ORDERED: ONDANSETRON 4 MG/2 ML VIAL IV PRN (23:38)
[2023-10-22] MEDS ORDERED: MORPHINE 2 MG/ML SYR IV PRN (23:38)
[2023-10-22] MEDS: NA CHLORIDE 0.9% 1,000 ML IV SCH (23:45)
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
[2023-10-23 02:00] LABS: Absolute Lymphocytes (CBC) 2.5 K/uL (0.7-4.9); Hematocrit 41.8 % (36.0-45.0); Lymphocytes % 22.1 % (15.3-44.8); MCV 97.1 fL (80-100); MPV 8.6 fL (7.6-11.3); Platelets 243 thou/uL (152-406)
[2023-10-23 02:07] LABS: Magnesium 2.3 mg/dL (1.6-2.4); Phosphorus 3.4 mg/dL (2.5-4.9); Potassium 4.1 mEq/L (3.5-5.1)
[2023-10-23] MEDS ORDERED: MORPHINE 2 MG/ML SYR IV PRN (03:00)
[2023-10-23 04:30] VITALS: BMI 28.9
[2023-10-23] MEDS: NA CHLORIDE 0.9% 1,000 ML IV SCH ×2 (04:56→14:50)
[2023-10-23 05:43] VITALS: O2SAT 98
[2023-10-23 08:26] LABS: Specific Gravity 1.028 (1.005-1.030); Urine Bilirubin NEGATIVE (Negative); Urine Blood Negative (Negative); Urine Clarity Clear (Clear); Urine Color Colorless (Yellow); Urine Glucose 4+ (Over) (Negative); Urine Protein NEGATIVE (Negative); Urine Urobilinogen Normal (Normal)
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
[2023-10-23] MEDS: INSULIN REGULAR (HUMAN) 100 UNIT/ML SQ SCH ×3 (09:15→17:08)
[2023-10-23 10:32] VITALS: BP 168/74; TEMP 97.5
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
--- NOTE | 2023-10-23 16:49 | EKG ---
Test Date: 2023-10-23 Test Time: 01:47:01 Vice President Network: [employer] MEASUREMENT RESULTS: Intervals: Rate: 87 VA: 142 QRSD: 88 QT: 384 QTc: 462 [place]: P: 56 VA: 142 QRS: 50 T: 70 INTERPRETIVE STATEMENTS: Normal sinus rhythm Normal ECG Compared to ECG 08/22/2016 00:55:28 Ventricular premature complex(es) no longer present Electronically Signed On 10-23-23 16:48:48 MAORI PHYSIOTHERAPIST by Rakesh Espinoza
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
--- NOTE | 2023-10-28 07:03 | ECHO ---
HEIGHT: 5 ft 8 in WEIGHT: 190 lb 6.4 oz DATE OF STUDY: 10/23/[address]: Sam Anne MD 2-DIMENSIONAL: YES M.MODE: YES DOPPLER: YES COLOR FLOW: YES TDS: NO PORTABLE: YES DEFINITY: NO BUBBLE STUDY: NO DIAGNOSIS: ELEVATED TROPONIN CARDIAC HISTORY: CATHERIZATION: NO SURGERY: NO PROSTHETIC VALVE: NO PACEMAKER: NO MEASUREMENTS (cm) DIASTOLIC (NORMALS) SYSTOLIC (NORMALS) IVSd 0.9 (0.6-1.2) LA Diam 2.1 (1.9-4.0) LVEF 66% LVIDd 3.2 (3.5-5.7) LVIDs 2.1 (2.0-3.5) %FS 35% LVPWd 1.1 (0.6-1.2) Ao Diam 2.5 (2.0-3.7) 2 DIMENSIONAL ASSESSMENT: RIGHT ATRIUM: NORMAL LEFT ATRIUM: NORMAL RIGHT VENTRICLE: NORMAL LEFT VENTRICLE: NORMAL TRICUSPID VALVE: NORMAL MITRAL VALVE: NORMAL PULMONIC VALVE: NORMAL AORTIC VALVE: NORMAL PERICARDIAL EFFUSION: NONE AORTIC ROOT: NORMAL LEFT VENTRICULAR WALL MOTION: NORMAL DOPPLER/COLOR FLOW: MILD TRICUSPID REGURGITATION. COMMENTS: 1. NORMAL LEFT VENTRICULAR EJECTION FRACTION 55-60%. 2. NORMAL WALL MOTION. 3. NORMAL DIASTOLIC FUNCTION. 4. MILD TRICUSPID REGURGITATION. TECHNOLOGIST: Danny BATES
== END 2023-10-23 18:01 | disposition home or self-care (01) ==
LOC: ER 19:16 → ERHOLD 23:32 → 2ND 10-23 03:57
PROVIDERS: ADMIT Internal Medicine; ATTEND Hospitalist
DX: S22.20XA Unspecified fracture of sternum, initial encounter for closed fracture (principal); M48.10 Ankylosing hyperostosis [Forestier], site unspecified; E11.9 Type 2 diabetes mellitus without complications; R79.89 Other specified abnormal findings of blood chemistry; V47.5XXA Car driver injured in collision with fixed or stationary object in traffic accident, initial encounter; W22.11XA Striking against or struck by driver side automobile airbag, initial encounter; Y93.89 Activity, other specified; Y92.410 Unspecified street and highway as the place of occurrence of the external cause; Z88.0 Allergy status to penicillin; Z88.1 Allergy status to other antibiotic agents; Z88.2 Allergy status to sulfonamides; Z88.8 Allergy status to other drugs, medicaments and biological substances
CPT/HCPCS: 93005; 93306; 85025 ×2; 80048 ×2; 36415; 86900; 83735; 86850; 82550; 84100; 86901; 82947 ×4; 81003; 84484 ×4; 70450; 72125; 71260; 74177; 71045 ×2; 96375; 96374; 99285; Q9967; J1815 ×3; J3360; J7030 ×2; G0378 ×3

== ENCOUNTER 2025-04-05 11:51 | Inpatient (IN) | payer OTHER ==
--- OUTSIDE RECORDS SUMMARY | 2025-04-05 11:54 | XMS REPORT | Clinical Summary ---
Author Name Unknown Organization [facility] Address [address] [place] [address] Care Team Providers Care Funeral Car Chauffeur Name Role Phone Wayne Richardson MD Primary Care Provider [phone] Allergies Active Allergy Reactions Criticality Noted Date Comments Sulfamethoxazole-Trimethoprim 2017 Meperidine 08/21/2018 Lactose 08/21/2018 Penicillins 08/21/2018 Sulfa (Sulfonamide Antibiotics) 08/03 Medications traMADol (ULTRAM) 50 mg tablet TAKE ONE (1) TABLET(S) BY MOUTH EVERY SIX HOURS NEEDED FOR PAIN. 0 8 Active GARLIC ORAL 3,000 mg. 4 Active lidya primrose/linole ic/gamoleni (PRIMROSE OIL ORAL) Active diazePAM (VALIUM) 5 mg tablet TAKE ONE (1) TABLET(S) BY MOUTH NEEDED AROUND THE TIME OF SURGERY. 8 Active eprim/linoleic/ gamolenic/cranb (EVENING PRIMROSE OIL-CRANBERRY ORAL) 6 Active calcium carbonate-vitam in D3 600 mg(1,500mg) -200 unit per tablet Active ascorbate Ml-mequmjzs-ysx 1,000 mg pwep 2,000 mg. 6 Active glipiZIDE (GLUCOTROL) 5 mg tablet TAKE ONE (1) TABLET(S) BY MOUTH TWICE A DAY. 8 Active lisinopril (PRINIVIL,ZESTR IL) 10 mg tablet 10 mg. 8 Active LUTEIN EXTRACT-ZEAXANT HIN EXT ORAL 40 mg. Active MAGNESIUM ORAL Activ e metFORMIN (GLUCOPHAGE) 500 mg tablet 500 mg. 8 Active NIACINAMIDE ORAL Niacinamide B-3 100mg Active omega 8-kiv-ddq-fish oil 183.3 mg-75 mg -91.6 mg-306 mg cap 1,000 mg. Active omeprazole (PriLOSEC) 40 MG capsule 40 mg. 7 Active coenzyme Q10 (CO Q-10) 200 mg capsule 200 mg. Active VITAMIN A ORAL 4 Active vitamin B complex capsule daily. Acti ve LOTEMAX 0.5 % ophthalmic ointment APPLY TO THE AFFECTED AREAS OF BOTH EYES THREE TIMES PER DAY. 2 8 Active Active Problems Problem Noted Date Diagnosed Date Endometrial carcinoma 08/21/2018 Cancer Staging:Pathologic stage from 10/03/2016:FIGO Stage II(T2, N0, cM0) - Signed by Carey Stover PA on 08/21/2018 Body mass index 30+ - obesity 10/03/2016 Type 2 diabetes mellitus without complication Essential hypertension 08/31/2016 Surgical History Surgery Date Site/Laterality Comments TOTAL ABDOMINAL HYSTERECTOMY W/ BILATERAL SALPINGOOPHORECTOMY 10/03/2016 Medical History Medical History Date Comments Diabetes mellitus Hypertension Endometrial carcinoma Anxiety Family History Medical History Relation Name Comments Depression Father Hyperlipidemia Father Hypertension Father -Breast cancer Maternal Grandmother -Gynecology (Ovary, Endometrial, Cervix, Vagina) Mothe r Diabetes Mother Hyperlipidemia Mother Hypertension Mother Relation Name Status Comments Father Maternal Grandmother Mother Social History Tobacco Use Types Packs/Day Years Used Date Smoking Tobacco: Never Assessed Comments Unknown Sex and Gender Information Value Date Recorded Sex Assigned at Not on file Legal Sex Female 1:19 PM CDT Gender Identity Not on file Sexual Orientation Not on file Obstetrics History Plan of Treatment Health Maintenance Due Date Last Done Comments Pneumococcal Vaccine: 50+ Years (1 of 1 - PCV) 010 COVID-19 Vaccine ( - 2023- season) 2024 Influenza Vaccine (Season Ended) 2025 Care Teams Funeral Car Chauffeur Relationship Specialty Start Date End Date Wayne Richardson [email or web address] PCP - General Gynecological Oncology 08/21/18
--- NOTE | 2025-04-05 12:52 | RAD REPORT ---
Procedure: Chest Single View HISTORY: Cough COMPARISON: January 2025 FINDINGS: Multiple, bilateral pulmonary nodules. Moderate right pleural effusion. The heart is normal size.
[2025-04-05 13:12] LABS: Absolute Basophils 0.3 K/uL (0-0.5); Absolute Lymphocytes (CBC) 0.6 K/uL (0.7-4.9); Absolute Neutrophil 28.1 K/uL (1.8-8.0); Hematocrit 31.4 % (36.0-45.0); Lymphocytes % 1.9 % (15.3-44.8); MCH 26.7 pg (27.0-35.0); MCHC 31.8 g/dL (32.0-36.0); MCV 84.1 fL (80-100); Monocytes % 3.5 % (3.3-12.3); Neutrophils % 93.6 % (41.7-73.7); Platelets 616 thou/uL (152-406); RBC Red Blood Cell Count 3.73 M/uL (3.86-4.86); Red Cell Distribution Width 16.4 % (12.1-15.2)
[2025-04-05 13:21] LABS: PT Prothrombin Time 15.6 SECONDS (10-13.0); PTT, Activated Partial Thromb 30.4 SECONDS (27.2-37.4); Protime INR 1.39
[2025-04-05 13:35] LABS: AST/SGOT 16 U/L (15-37); Albumin 1.8 g/dL (3.4-5.0); Albumin/Globulin Ratio 0.3 (1.1-1.8); Alkaline Phosphatase 117 U/L (45-117); Anion Gap 10.9 mEq/L (5.0-15.0); BUN Blood Urea Nitrogen 9 mg/dL (7-18); Bicarbonate 30 mEq/L (21-32); Bilirubin Total 0.3 mg/dL (0.2-1.0); Globulin 5.8 g/dL (2.3-3.5); Glomerular Filtration Rate 101 ml/min (=/>90); Glucose Level 232 mg/dL (74-106); Potassium 3.9 mEq/L (3.5-5.1); Protein, Total 7.6 g/dL (6.4-8.2); Sodium Level 126 mEq/L (136-145)
[2025-04-05 13:41] LABS: ALT/SGPT < 14 U/L (13-56)
[2025-04-05 14:01] LABS: Differential Total Cells Count 100; Segmented Neutrophils 96 % (40-80)
[2025-04-05 14:02] LABS: Blood Morphology Comment NOT SEEN (NOT SEEN); Lymphocytes 1 % (15-42); Monocytes 3 % (0-10); Platelet Estimate INCR; Platelets, Giant PRESENT; Toxic Granulation 2+
--- NOTE | 2025-04-05 15:46 | RAD REPORT ---
EXAMINATION: CT ABDOMEN AND PELVIS WITH CONTRAST CLINICAL INDICATION: Abdominal pain TECHNIQUE: CT abdomen and pelvis was performed, after the administration of 100 cc Isovue-300.. Sagit jaci and coronal reconstructions were obtained. One or more of the following dose reduction techniques were used: Automated exposure control, adjustment of the mA and kV according to patient si ze, and iterative reconstruction. Unless otherwise specified, incidental findings do not require dedicated imaging follow-up. [id number]. Oral contrast was given. COMPARISON: .January 2025 FINDINGS: Moderate right pleural effusion. Large breast mass with smaller masses anterior fat lower chest. Hepatic granulomata. The spleen, pancreas and adrenals unremarkable. Bilateral renal calculi without hydronephrosis. Mild soft tissue perirectal region could represent incomplete distention or mass. No fluid filled abs cess noted. Large ulceration subcutaneous tissues right buttocks. Cortical irregularity right ischium. Dislocation involves the coccyx. : IMPRESSION: Moderate right pleural effusion Large right breast mass with smaller soft tissue masses anterior subcutaneous tissues lower chest. Ulceration subcutaneous tissues right buttocks. Cortical irregularity right ischium could indicate ea rly osteomyelitis.
[2025-04-05] MEDS: VANCOMYCIN 1.5 GM in NA CHLORIDE 0.9% 500 ML IVPB ONE (16:00)
--- NOTE | 2025-04-05 16:44 | ER ---
Nurse's Notes [facility] Name: Heather Dexter Age: 64 yrs Sex: Female : 1960 Arrival Date: 04/05/2025 Time: 11:51 Bed 5 Private MD: Diagnosis: Weakness Presentation: 04/05 12:30 Chief complaint: Generalized weakness x months. Being treated for breast cancer. hb Multiple wounds noted to perineum, buttocks, right upper chest, and LLE. Coronavirus screen: At this time, the client does not indicate any symptoms associated with coronavirus-19. Ebola Screen: No symptoms or risks identified at this time. Initial Sepsis Screen: Does the patient meet any 2 criteria? No. Patient's initial sepsis screen is negative. Does the patient have a suspected source of infection? No. Patient's initial sepsis screen is negative. Risk Assessment: Do you want to hurt yourself or someone else? Patient reports no desire to harm self or others. Onset of symptoms is unknown. 12:30 Method Of Arrival: Wheelchair hb 12:30 Acuity: MOISÉS 2 hb Triage Assessment: 14:31 General: Appears ill, Behavior is cooperative, flat. Pain: Pain currently is 5 out of hb 10 on a pain scale. EENT: No signs and/or symptoms were reported regarding the EENT system. Neuro: Level of Consciousness is obeys commands, lethargic, Oriented to person, place, time, situation. Cardiovascular: Patient's skin is warm and dry. Respiratory: Respiratory effort is even, unlabored, Respiratory pattern is regular, symmetrical. GI: No signs and/or symptoms were reported involving the gastrointestinal system. : No signs and/or symptoms were reported regarding the genitourinary system. Derm: Skin is healthy with good turgor, Skin is dry, Skin is pale. Musculoskeletal: Reports generalized weakness. Historical: - Allergies: 12:30 Bactrim; hb 12:30 meperidine HCl; hb 12:30 PENICILLINS; hb 12:30 sulfamethoxazole; hb 12:30 sulfamethoxazole-trimethoprim; hb - PMHx: 12:30 Diabetes - NIDDM; Anxiety; panic attack; hb 14:31 Breast Cancer; hb - PSHx: 12:30 Total abdominal hysterectomy; hb - Immunization history:: Adult Immunizations up to date. - Infectious Disease History:: Denies. - Social history:: Smoking status: Patient denies any tobacco usage or history of. Screenin:33 [facility] ED Fall Risk Assessment (Adult) History of falling in the last 3 months, hb including since admission No falls in past 3 months (0 pts) Confusion or Disorientation No (0 pts) Intoxicated or Sedated No (0 pts) Impaired Gait Yes (1 pt) Mobility Assist Device Used Yes (1 pt) Altered Elimination Yes (1 pt) Score/Fall Risk Level 3 or more points = High Risk Oriented to surroundings, Maintained a safe environment, Educated pt \T\ family on fall prevention, incl call for assistance when getting out of bed. Abuse screen: Denies threats or abuse. Denies injuries from another. Nutritional screening: No deficits noted. Tuberculosis screening: No symptoms or risk factors identified. Assessment: 13:15 Reassessment: Finished drinking oral contrast at 1240, CT notified. hb 15:30 Reassessment: Patient appears in no apparent distress at this time. No changes from hb previously documented assessment. 16:59 Reassessment: Patient appears in no apparent distress at this time. No changes from hb previously documented assessment. Patient and/or family updated on plan of care and expected duration. Pain level reassessed. 18:49 Reassessment: Patient appears in no apparent distress at this time. No changes from hb previously documented assessment. Patient and/or family updated on plan of care and expected duration. Pain level reassessed. Vital Signs: 12:30 BP 131 / 99; Pulse 82; Resp 18; Temp 98.4(O); Pulse Ox 100% on R/A; Pain 5/10; hb 14:00 BP 146 / 96; Pulse 74; Resp 15; Pulse Ox 99% ; hb 15:45 BP 142 / 80; Pulse 72; Resp 16; Pulse Ox 98% on R/A; hb 17:00 BP 139 / 57; Pulse 77; Resp 17; Pulse Ox 100% on R/A; hb 18:30 BP 136 / 66; Pulse 71; Resp 15; Pulse Ox 98% on R/A; hb 12:30 Pain Scale: Adult hb ED Course: 11:58 Patient arrived in ED. bd 12:09 Michael Dennis MD is Attending Physician. jj9 12:31 Triage completed. hb 12:31 Arm band placed on. hb 12:41 Chest Single View XRAY In Process Unspecified. EDMS 12:58 Initial lab(s) drawn, by me, sent to lab. Accessed peripheral vein via ultrasound, hb utilizing dynamic ultrasound technique using per hospital protocol. Clean \T\ dry. Dressing intact. Good blood return. Flushes easily. 20G LAC. 13:18 Magnus Ho, RN is Primary Nurse. bp 14:33 Patient has correct armband on for positive identification. Bed in low position. Call hb light in reach. Provided Education on: tests, result times, use of call light . Client placed on continuous cardiac and pulse oximetry monitoring. NIBP monitoring applied. medical chief technician on. Pulse ox on. NIBP on. 14:38 CT Abd/Pelvis - PO and IV Contrast In Process Unspecified. EDMS 16:42 Sam Anne is Hospitalizing Provider. jj9 19:30 No provider procedures requiring assistance completed. Patient admitted, IV remains in cp4 place. Administered Medications: 16:01 Drug: vancoMYCIN IVPB 1.5 grams IVPB at calculated rate once Route: IVPB; Rate: jl7 calculated rate; Site: left antecubital; 19:33 Follow up: IV Status: Completed infusion cp4 18:40 Drug: Cefepime IVPB 1 grams IVPB at 200 ml/hr once over 30 mins; (mix in NS 100 mL) hb Route: IVPB; Rate: 200 ml/hr; Infused Over: 30 mins; Site: left antecubital; 19:33 Follow up: IV Status: Infusion continued upon admission cp4 Medication: 14:34 VIS not applicable for this client. hb Outcome: 16:43 Decision to Hospitalize by Provider. jj9 19:30 Admitted to Med/surg accompanied by tech, via wheelchair, room 213, with chart, cp4 19:30 Condition: stable 19:30 Instructed on the need for admit, 19:32 Patient left the ED. cp4 Signatures: Dispatcher [employer] EDMT Gail Macias Heather, Bolivar Aguiar RN, RN RN jl7 Magnus Ho, Nikki Warren RN cp4 Michael Dennis MD MD jj9 Corrections: (The following items were deleted from the chart) 13:06 12:58 Inserted saline lock: 20 gauge in left antecubital area, using aseptic technique. hb Blood collected. Flushed with 10 mL NS hb 14:33 14:31 BP 136 / 96; Pulse 74bpm; Resp 15bpm; Pulse Ox 99%; hb hb
--- NOTE | 2025-04-05 16:44 | EDPHYS ---
Physician Documentation [facility] Name: Heather Dexter Age: 64 yrs Sex: Female : 1960 Arrival Date: 04/05/2025 Time: 11:51 Bed 5 Private MD: ED Physician Michael Dennis HPI: 04/05 17:50 This 64 yrs old Female presents to ER via Wheelchair with complaints of General jj9 Weakness. 17:44 The patient is a 64-year-old female that comes to the emergency department complaining jj9 of overall weakness, leg swelling, worsening sacral ulcers, debility, inability to take care of herself. Boyfriend at bedside reports that he is unable to take care of the patient. She has history of breast cancer currently undergoing immunotherapy treatments. She denies chest pain, shortness of breath, fever or chills. She feels weak.. Historical: - Allergies: 12:30 Bactrim; hb 12:30 meperidine HCl; hb 12:30 PENICILLINS; hb 12:30 sulfamethoxazole; hb 12:30 sulfamethoxazole-trimethoprim; hb - PMHx: 12:30 Diabetes - NIDDM; Anxiety; panic attack; hb 14:31 Breast Cancer; hb - PSHx: 12:30 Total abdominal hysterectomy; hb - Immunization history:: Adult Immunizations up to date. - Infectious Disease History:: Denies. - Social history:: Smoking status: Patient denies any tobacco usage or history of. ROS: 17:45 Constitutional: Negative for body aches, chills, fever, jj9 17:45 Eyes: Negative for acute changes, 17:45 ENT: Negative for injury or acute deformity, drainage from ear(s), ear pain, 17:45 Neck: Negative for mass, pain with movement, 17:45 Cardiovascular: Negative for chest pain, 17:45 Respiratory: Negative for cough, 17:45 Abdomen/GI: Negative for abdominal pain, 17:45 MS/extremity: Positive for swelling, 17:45 Neuro: Negative for altered mental status, 17:45 All other systems are negative, 17:50 Constitutional: Negative for fever, chills, and weight loss, Eyes: Negative for injury, jj9 pain, redness, and discharge, ENT: Negative for injury, pain, and discharge, Exam: 17:46 Constitutional: The patient appears alert, awake, jj9 17:46 Head/face: Exam is negative for 17:46 Eyes: Exam is negative for 17:46 ENT: Exam is negative for 17:46 Chest/axilla: right breast mass . 17:46 Cardiovascular: Exam negative for 17:46 Respiratory: decreased breath sounds , 17:46 Back: sacral ulcers ranging from stage I to IV, 17:50 Constitutional: This is a well developed, well nourished patient who is awake, alert, jj9 and in no acute distress. Head/Face: Normocephalic, atraumatic. Eyes: Pupils equal round and reactive to light, extra-ocular motions intact. Lids and lashes normal. Conjunctiva and sclera are non-icteric and not injected. Cornea within normal limits. Periorbital areas with no swelling, redness, or edema. ENT: Nares patent. No nasal discharge, no septal abnormalities noted. Tympanic membranes are normal and external auditory canals are clear. Oropharynx with no redness, swelling, or masses, exudates, or evidence of obstruction, uvula midline. Mucous membranes moist. Neck: Trachea midline, no thyromegaly or masses palpated, and no cervical lymphadenopathy. Supple, full range of motion without nuchal rigidity, or vertebral point tenderness. No Meningismus. Vital Signs: 12:30 BP 131 / 99; Pulse 82; Resp 18; Temp 98.4(O); Pulse Ox 100% on R/A; Pain 5/10; hb 14:00 BP 146 / 96; Pulse 74; Resp 15; Pulse Ox 99% ; hb 15:45 BP 142 / 80; Pulse 72; Resp 16; Pulse Ox 98% on R/A; hb 17:00 BP 139 / 57; Pulse 77; Resp 17; Pulse Ox 100% on R/A; hb 18:30 BP 136 / 66; Pulse 71; Resp 15; Pulse Ox 98% on R/A; hb 12:30 Pain Scale: Adult hb MDM: 12:10 Medical Screening Exam initiated jj9 17:47 Differential Diagnosis altered mental status, sepsis, Dehydration, cancer progression, jj9 osteomyelitis, weakness, failure to thrive, etc.. Data reviewed: vital signs, nurses notes, lab test result(s), CBC, EKG, radiologic studies, CT scan, plain films. Consideration of Admission/Observation Patient was admitted/placed on observation. Management of patient was discussed with the following: Hospitalist: hospitalist. Care significantly affected by the following chronic conditions: Hypertension, Cancer. ED course: The patient remains hemodynamically stable lab work significant for leukocytosis. She is afebrile. On exam large sacral ulcers appear chronic in nature. Broad-spectrum antibiotics started cefepime and vancomycin IV lactic acid of 2 CT scan of the abdomen pelvis as discussed above. I have discussed the case with the hospitalist on-call for admission IV antibiotics and further evaluation of the generalized weakness.. 04/05 12:19 Order name: Blood Culture Adult (2) [facility] 04/05 12:19 Order name: CBC with Diff; Complete Time: 14:41 [facility] 04/05 14:43 Interpretation: WBC 30.00; HGB 10.0. 04/05 12:19 Order name: CMP; Complete Time: 14:41 [facility] 04/05 14:42 Interpretation: Abnormal: NA 126; GLUC 232. 04/05 12:19 Order name: Lactate w/ 2H reflex if indic.; Complete Time: 14:41 [facility] 04/05 14:42 Interpretation: Within normal limits. 04/05 12:19 Order name: Protime (+inr); Complete Time: 14:41 [facility] 04/05 14:42 Interpretation: Within normal limits. 04/05 12:19 Order name: Ptt, Activated; Complete Time: 14:41 [facility] 04/05 14:42 Interpretation: Within normal limits. 04/05 14:02 Order name: Manual Differential; Complete Time: 14:41 EDMS 04/05 14:42 Interpretation: Abnormal: SEGS 96. 04/05 17:21 Order name: Basic Metabolic Panel EDMS 04/05 17:21 Order name: Basic Metabolic Panel EDMS 04/05 17:21 Order name: Basic Metabolic Panel EDMS 04/05 17:21 Order name: Basic Metabolic Panel EDMS 04/05 17:21 Order name: Basic Metabolic Panel EDMS 04/05 17:21 Order name: CBC with Automated Diff EDMS 04/05 17:21 Order name: CBC with Automated Diff EDMS 04/05 17:21 Order name: CBC with Automated Diff EDMS 04/05 17:21 Order name: CBC with Automated Diff EDMS 04/05 17:21 Order name: CBC with Automated Diff EDMS 04/05 17:21 Order name: Procalcitonin EDMS 04/05 17:21 Order name: Procalcitonin EDMS 04/05 12:23 Order name: CT Abd/Pelvis - PO and IV Contrast; Complete Time: 16:36 9 04/05 12:23 Order name: Chest Single View XRAY; Complete Time: 14:41 04/05 14:43 Interpretation: No acute disease. 04/05 12:19 Order name: EKG; Complete Time: 12:19 9 04/05 17:43 Order name: Physical Therapy Consult EDWI 04/05 12:19 Order name: Accucheck; Complete Time: 13:05 04/05 12:19 Order name: Cardiac monitoring; Complete Time: 14:30 9 04/05 12:19 Order name: EKG - Nurse/Tech; Complete Time: 14:30 04/05 12:19 Order name: IV Saline Lock - Large Bore; Complete Time: 13:05 9 04/05 12:19 Order name: Labs collected and sent; Complete Time: 13:05 04/05 12:19 Order name: O2 Per Protocol; Complete Time: 13:05 04/05 12:19 Order name: O2 Sat Monitoring; Complete Time: 13:05 9 04/05 12:19 Order name: Vital Signs; Complete Time: 13:05 Administered Medications: 16:01 Drug: vancoMYCIN IVPB 1.5 grams IVPB at calculated rate once Route: IVPB; Rate: jl7 calculated rate; Site: left antecubital; 19:33 Follow up: IV Status: Completed infusion cp4 18:40 Drug: Cefepime IVPB 1 grams IVPB at 200 ml/hr once over 30 mins; (mix in NS 100 mL) hb Route: IVPB; Rate: 200 ml/hr; Infused Over: 30 mins; Site: left antecubital; 19:33 Follow up: IV Status: Infusion continued upon admission cp4 Disposition Summary: 04/05/25 16:43 Hospitalization Ordered Notes: Hospitalization Status: Inpatient Admission jj9 Provider: Sam Anne9 Location: Telemetry/MedSurg (Inpatient) Condition: Stable j Problem: an acute exacerbation j Symptoms: have worsened Bed/Room Type: Standard [facility] Room Assignment: 213(04/05/25 18:45) bd Diagnosis - Weakness Forms: - Medication Reconciliation Form j - SBAR form - Leadership Thank You Letter Signatures: Dispatcher [employer] EDGail Mota Heather, RN RN Bolivar Slater RN RN jl7 Michael Dennis MD MD jj9 Nikki Beckman cp4 Corrections: (The following items were deleted from the chart) 14:43 14:42 Abnormal: WBC 30.00; HGB 10.0. j 18:45 16:43 j bd
[2025-04-05] MEDS: VANCOMYCIN 1 GM in NA CHLORIDE 0.9% 250 ML IVPB SCH (17:18)
--- NOTE | 2025-04-05 17:27 | P.HP ---
Certification for Inpatient Patient admitted to: Inpatient Patient will require the following post-hospital care: None Practitioner: I am a practitioner with admitting privileges, knowledge of patient current condition, hospital course, and medical plan of care. Services: Services provided to patient in accordance with Admission requirements found in Title 42 Section 412.3 of the Code of Federal Regulations Patient History Date of Service: 04/05/25 Reason for admission: Weakness, sacral wound/osteomyelitis History of Present Illness: 60-year-old female with history of breast cancer on immunotherapy currently, [id number] presents to the emergency department chief complaint of generalized weakness. She reports has been unable to get up or walk recently feeling lethargic. She is pale. Patient was evaluated in the emergency department her labs are significant for marked leukocytosis with a white blood cell count of 30 hemoglobin of 10 hematocrit 31.4 sodium 126 chloride 89 glucose 232 lactic acid 2.0 Chest x-ray shows moderate right pleural effusion which is malignant in nature and known to patient, CT of the abdomen pelvis was performed which revealed moderate right pleural effusion, large right breast mass with smaller soft tissue masses anterior subcutaneous tissues of the lower chest, ulceration subcutaneous tissues right buttocks. Cortical irregularity right ischium could indicate early osteomyelitis. Patient reports that she is aware of an elevated white blood cell count ever since she started immunotherapy although she is not sure of the numbers, not available for review in EMR, she states she gets her labs done with home health and they are reported to the cancer center. Patient admitted for further evaluation management of weakness, sacral wound with possible ischial osteomyelitis I discussed the case with general surgery that she follows outpatient, they will see her in the hospital in the morning Allergies meperidine HCl [From Demerol] Allergy (Intermediate, Verified 01/10/12 16:26) Hives Penicillins Allergy (Intermediate, Verified 01/10/12 16:26) Hives/Rash sulfamethoxazole [From Bactrim] Allergy (Verified 01/14/12 18:01) Hives trimethoprim [From Bactrim] Allergy (Verified 01/14/12 18:01) Hives sulfame Allergy (Uncoded 08/22/16 02:27) Unknown Home Medications: Propylene Glycol [Systane Complete] 1 gtt EACH EYE BEDTIME 10/23/23 Sitagliptin Phos/Metformin HCl [Janumet Xr 100-1,000 mg Tablet] 1 tab PO DAILY AT SUPPER 10/23/23 glipiZIDE [Glipizide] 10 mg PO BID 10/23/23 - Past Medical/Surgical History Diabetic: Yes -: Diabetes mellitus type 2 -: panic -: anxiety -: vertigo -: Breast cancer on immunotherapy -: right hand sx -: hysterectomy Psychosocial/ Personal History: Lives at home with her boyfriend, has home health but no PT - Family History Mother -: Diabetes - Social History Alcohol use: No Place of Residence: Home Review of Systems 10-point ROS is otherwise unremarkable General: Chills, Weakness, Malaise Physical Examination - Physical Exam General: Alert, In no apparent distress, Oriented x3 HEENT: Atraumatic, PERRLA, Other (Male), EOMI, Sclerae nonicteric Neck: Supple, No LAD, Without JVD or thyroid abnormality Respiratory: Diminished (Diminished on the right) Cardiovascular: Regular rate/rhythm, Normal S1 S2 Gastrointestinal: Normal bowel sounds, No tenderness Musculoskeletal: No tenderness Integumentary: Other (To right anterior chest wall, sacral area) Neurological: Normal speech, Normal affect - Studies Laboratory Data (last 24 hrs) 04/05/25 04/05/25 04/05/25 12:58 12:58 12:58 WBC 30.00 H Hgb 10.0 L Hct 31.4 L Plt Count 616 H PT 15.6 H INR 1.39 APTT 30.4 Sodium 126 L Potassium 3.9 BUN 9 Creatinine 0.57 Glucose 232 H Total Bilirubin 0.3 AST 16 ALT < 14 Alkaline Phosphatase 117 Assessment and Plan - Plan Assessment: 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 ischial osteomyelitis Breast cancer on immunotherapy Leukocytosis Hyponatremia Malignant right moderate pleural effusion General weakness/deconditioning Diabetes mellitus type [id number] with hyperglycemia Plan: 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 ischial osteomyelitis Breast cancer on immunotherapy Leukocytosis Broad-spectrum antibiotics with vancomycin/cefepime surgical consultation, Infectious disease consultation Procalcitonin, repeat CBC in the morning Reports elevated white blood cell count outpatient with home health at the cancer center every send starting immunotherapy Hyponatremia Gentle IV fluids recheck chemistry in the morning Further workup if not improving Malignant right moderate pleural effusion Breathing well on room air at this time patient aware of pleural effusion Continue to monitor as needed with chest x-ray General weakness/deconditioning PT consultation Diabetes mellitus type [id number] with hyperglycemia ACHS Accu-Chek, sliding scale insulin DVT PPX: Lovenox Code status:full Discharge Plan: Home Plan to discharge in: Greater than 2 days - Advance Directives Does patient have a Living Will: No Does patient have a Durable POA for Healthcare: No - Code Status/Comfort Care Code Status Assessed: Yes (Full code) Critical Care: No Time Spent Managing Pts Care (In Minutes): 67
[2025-04-05] MEDS ORDERED: NA CHLORIDE 0.9% 100 ML ONE (18:33)
[2025-04-05] MEDS ORDERED: GLUCAGON 1 MG/VIAL IM PRN (18:58)
[2025-04-05] MEDS ORDERED: D10W 125 ML IV PRN (18:58)
[2025-04-05] MEDS: NA CHLORIDE 0.9% 1,000 ML IV SCH (20:18)
[2025-04-05] MEDS: INSULIN REGULAR (HUMAN) 100 UNIT/ML SQ SCH (21:00)
[2025-04-05] MEDS: CEFEPIME 2 GM in NA CHLORIDE 0.9% 100 ML IV SCH (21:49)
[2025-04-06 02:50] VITALS: BMI 28.2
[2025-04-06 05:59] LABS: Absolute Lymphocytes (CBC) 0.6 K/uL (0.7-4.9); Absolute Monocytes 0.9 K/uL (0.1-1.3); Absolute Neutrophil 20.6 K/uL (1.8-8.0); Basophils % 0.2 % (0-1.3); Eosinophils % 0.1 % (0-4.4); Hematocrit 27.3 % (36.0-45.0); Hemoglobin 8.8 g/dL (12.0-15.0); Lymphocytes % 2.6 % (15.3-44.8); MCH 26.8 pg (27.0-35.0); MCHC 32.3 g/dL (32.0-36.0); MCV 82.8 fL (80-100); MPV 6.8 fL (7.6-11.3); Monocytes % 4.1 % (3.3-12.3); Platelets 550 thou/uL (152-406); RBC Red Blood Cell Count 3.29 M/uL (3.86-4.86); Red Cell Distribution Width 16.1 % (12.1-15.2)
[2025-04-06 06:18] LABS: Anion Gap 8.5 mEq/L (5.0-15.0); Potassium 3.5 mEq/L (3.5-5.1)
[2025-04-06] MEDS: POTASSIUM CL SA 10 MEQ TAB PO ONE (09:00)
[2025-04-06] MEDS: ENOXAPARIN 40 MG/0.4 ML SQ SCH (09:00)
[2025-04-06] MEDS: VANCOMYCIN 1.5 GM in NA CHLORIDE 0.9% 500 ML IVPB SCH (11:15)
[2025-04-06] MEDS: LIDOCAINE HCL/EPINEPHRINE 20 ML MDV ONE (11:54)
[2025-04-06] MEDS ORDERED: propofoL 200 MG/20 ML VIAL IV ONE (13:06)
[2025-04-06] MEDS ORDERED: ONDANSETRON 4 MG/2 ML VIAL ONE (13:06)
[2025-04-06] MEDS ORDERED: FENTANYL CITR 100 MCG/2 ML ONE (13:06)
[2025-04-06] MEDS ORDERED: LIDOCAINE 1% MPF 5 ML VIAL ONE (13:06)
[2025-04-06] MEDS ORDERED: MIDAZOLAM HCL 2 MG/2 ML INJ ONE (13:06)
[2025-04-06] MEDS: CEFAZOLIN SODIUM 1 GM/VIAL ONE (14:08)
[2025-04-06] MEDS ORDERED: MORPHINE 10 MG/ML VIAL ONE (14:54)
--- NOTE | 2025-04-06 15:13 | CON ---
Date of Consultation: 04/06/2025 Brief History Of Present Illness: The patient is a 64-year-old woman known to me, previous interacti ons beginning several months ago with a history of biopsy-proven breast cancer which are ER positive, MT positive, HER2 positive, and also ER positive, MT negative, who has been on immunotherapy, chemot herapy for over 1 year. She states that she has significant weakness and fatigue. She has a history of hysterectomy, which showed endometrial cancer as well. She has multiple wounds which included th e right breast as well as multiple wounds of her buttock and ischial areas which I have been managing as an outpatient. I have recommended surgery on multiple occasions. Patient has refused surgery as an outpatient, and as such, she came to the emergency room with worsening symptoms, in that she has worse fatigue, malaise, fever, and generalized feeling of sickness and illness with constitutional co mplaints including somnolence at times. As such, she was seen in the emergency room for workup for t he above-stated issue. She continues to have the wounds as described. She has significant improveme nt in the majority of her wounds, however, sacral buttock wounds continued to be progressively worse, and at times, it waxes and wanes on occasion and she does have concern for osteomyelitis in the butt ock area, which is consistent with osteomyelitis, which I have discussed with the patient as an outpa tient and recommended surgery, she has refused on many occasions. Past Medical History: Diabetes, anxiety, depression, vertigo, breast cancer, endometrial cancer. Sh diya had right hand surgery. She is currently on immunotherapy as described. Past Surgical History: Includes right hand surgery, hysterectomy. Allergies: TO MEPERIDINE, PENICILLIN, SULFA. Home Medications: Include Systane and glipizide. Family History: Significant for diabetes in her mother. Social History: She lives at home with her boyfriend, who helps with the wound care minimally. She denies alcohol, recreational drug use, or smoking. Review of Systems: Ten-point review of systems other than HPI, she has chills as well. Physical Examination: General: She appears fatigued and tired, pale consistent with previous encounters. She is awake, al ert, and oriented. Psychiatric: She is appropriate and conversive x3. HEENT: She is normocephalic. Sclerae anicteric. Mucous membranes are moist. Oropharynx clear. Neck: Supple without JVD. She has poor dentition. Chest: Normal to expansion and excursion. She has a right breast fungating cancer which appeared si gnificantly improved from previous encounters with multiple fungating mass like changes with ischemic changes, to some areas necrosis, drainage. However, this is still improved from previous exam. Respiratory: She is diminished on the right. Cardiovascular: She is regular rate and rhythm. Gastrointestinal: She is soft. Skin: Focused examination of her skin shows significant necrosis and necrotic wounds to her buttock and ischial areas with several wounds evident in this area with necrosis and infection apparent. She has lymphedema to her right arm which is significant and bilateral lower extremity edema. However, her right arm is significantly more edematous when compared to the left. Laboratory Data: Which revealed a white blood cell count 22.2, hemoglobin is 8.8, hematocrit 27.3, p latelet count is 550, neutrophils are 93%. Sodium is 128, potassium 3.5, chloride 94, carbon dioxide 29, BUN 9, creatinine 0.4, glucose is 241, procalcitonin 1.22. She had an imaging performed, which included a CT of the abdomen and pelvis, officially read: Moderate right pleural effusion. Large br east mass with smaller masses large ulceration, subcutaneous tissues, right buttock. Idris ical irregularity of the right ischium. Dislocation involving the coccyx. Assessment And Plan: This is a 64-year-old woman who has metastatic cancer as described above, who p resents with chronic wounds of her right buttock area and multiple smaller wounds of the contralatera l buttocks as well, who has significant infection and/or osteomyelitis of the right ischial area with ongoing infection of this area. 1. IV fluid hydration. 2. Antibiotic coverage. 3. Wound care. 4. I have explained risks, benefits, and alternatives of debridement of these buttock wounds and isch ial wounds and possible other wounds on her backside in the perirectal area including, but not limite d to, bleeding, infection, damage to surrounding tissues, need for further operative procedures, bloo d clots, heart attacks, strokes, other unforeseen complications in the perioperative period. The pat ient displayed understanding of the above-stated plan. Agreed to proceed as indicated. TK/VANESA Voice ID: [id number] Report ID: [id number]
[2025-04-06] MEDS: NA CHLORIDE 0.9% 1,000 ML ONE (15:22)
[2025-04-06] MEDS: COLLAGENASE 30 GM OINTMENT TOP ONE (15:31)
--- NOTE | 2025-04-06 15:31 | P.OP ---
Preoperative diagnosis: RIGHT Buttock Necrotic Wound Postoperative diagnosis: Necrotizing fasciitis of RIGHT Buttock Primary procedure: Wide Local Debridement of Necrotizing fasciitis of RIGHT Buttock Anesthesia: GETA Estimated blood loss: 20cc Specimen: Cultures x 4, Debridement Tissues Findings: ~ 25x15 down to fascia over bone Complications: None Transferred to: Recovery Room Condition: Good
[2025-04-06] MEDS: DIPHENHYDRAMINE 50 MG/ML VIAL ONE (16:12)
[2025-04-06] MEDS: KCL 20 MEQ/100 mL IVPB 20 MEQ/100 ML BAG IV SCH (19:22)
--- NOTE | 2025-04-06 20:48 | OP ---
Date of Procedure: 04/06/2025 Surgeon: Dany Garcia MD, Preoperative Diagnosis: Right buttock necrotic wound. Postoperative Diagnosis: Necrotizing fasciitis of the right buttock extending to the ischial fascia. Procedure Performed: Wide local excisional debridement of necrotizing fasciitis of the right buttock area. Anesthesia: General endotracheal. Estimated Blood Loss: Less than 20 cc. Specimens: Cultures x4 for both aerobic and anaerobic speciation, and debridement of tissue. Findings: Approximately 25 x 15 cm defect extending down to the fascia overlying the bone of the isc hium on the right. Complications: None. Disposition: The patient was transferred to recovery room in good condition. Procedure In Detail: After informed consent was obtained, patient was brought to the operating room, prepped and draped in the usual fashion, after adequate anesthesia was achieved. The patient had an obvious large open wound, which had necrotizing soft tissue infection in this area. As I debrided i t, villalta necrotic gaseous appearing necrotizing soft tissue infection was appreciated. I debrided it sharply circumferentially around for the areas described above extending over to the fascia overlying the right ischium. There did not appear to be obvious necrotizing fasciitis to this deep plane exte nding to the bone. Therefore, I was able to circumferentially dissect that all nonviable tissue and cultures sent x4 of the murky colored fluid. Pulse lavage was then performed in the cavity until com pletely clear. Small bits of necrotic tissue were then trimmed off using Metzenbaum scissors, at thi s point, until all nonviable tissue was removed. I pulse lavage the area once again. Hemostasis was achieved with electrocautery. Then I packed the wound with Vashe soaked Kerlix rolls x2. 2 Kerlix rolls were placed into the wound and a sterile dressing was placed over top. I then turned my attent ion to some of the superficial skin necrosis, which was easily curetted off down to the superficial d ermis layer. There were multiple small punctate areas over the both right and left buttocks, which w ere managed with a similar fashion. After this was performed, the area was irrigated and then covere d with sterile dressing as well. The patient tolerated the procedure well without incident or compli cation, transferred to PACU in good condition. All counts were correct at the end of the case. FADY/ISAAKL Voice ID: [id number] Report ID: [id number]
[2025-04-06] MEDS: JUVEN PACKET PO SCH (21:55)
[2025-04-06] MEDS: MORPHINE 2 MG/ML SYR IV PRN (23:14)
--- NOTE | 2025-04-07 06:35 | P.PN ---
Date of Service: 04/06/25 Subjective Awake, feeling "ok" plan for surgery today with Dr. Garcia ROS 10 point ROS as noted above, otherwise negative Physical Exam General: Alert and Oriented x3, NAD HEENT: Atraumatic, PERRLA, EOMI, Sclerae nonicteric Neck: Supple, No LAD, Without JVD or thyroid abnormality Respiratory: nonlabored breathing, on RA Cardiovascular: mild tachycardia, Normal S1 S2 Gastrointestinal: Normal bowel sounds, No tenderness Musculoskeletal: No tenderness Integumentary: Other (To right anterior chest wall, sacral area) Neurological: Normal speech, Normal affect Vitals Reviewed Problem list 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 ischial osteomyelitis Breast cancer on immunotherapy Leukocytosis Hyponatremia Malignant right moderate pleural effusion General weakness/deconditioning Diabetes mellitus type [id number]-[id number]-[id number] with hyperglycemia Assessment and Plan 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 ischial osteomyelitis Breast cancer on immunotherapy Leukocytosis Broad-spectrum antibiotics with vancomycin/cefepime surgical consultation, Infectious disease consultation Procalcitonin, repeat CBC in the morning Reports elevated white blood cell count outpatient with home health at the cancer center every send starting immunotherapy Jose to take to surgery today Hyponatremia Gentle IV fluids recheck chemistry in the morning Further workup if not improving Malignant right moderate pleural effusion Breathing well on room air at this time patient aware of pleural effusion Continue to monitor as needed with chest x-ray General weakness/deconditioning PT consultation Diabetes mellitus type [id number] with hyperglycemia ACHS Accu-Chek, sliding scale insulin DVT PPX: Lovenox Code status:full Discharge Plan: Home Plan to discharge in: Greater than 2 days
[2025-04-07 08:09] LABS: Absolute Basophils 0.1 K/uL (0-0.5); Absolute Eosinophils 0.1 K/uL (0-0.5); Absolute Monocytes 0.7 K/uL (0.1-1.3); Absolute Neutrophil 19.3 K/uL (1.8-8.0); Basophils % 0.4 % (0-1.3); Eosinophils % 0.4 % (0-4.4); Hemoglobin 9.4 g/dL (12.0-15.0); Lymphocytes % 4.9 % (15.3-44.8); MCH 25.8 pg (27.0-35.0); MCHC 30.4 g/dL (32.0-36.0); MPV 7.2 fL (7.6-11.3); Monocytes % 3.5 % (3.3-12.3); Neutrophils % 90.8 % (41.7-73.7); Nucleated Red Blood Cells % 0.1 % (0-0); Platelets 595 thou/uL (152-406); RBC Red Blood Cell Count 3.65 M/uL (3.86-4.86); Red Cell Distribution Width 16.1 % (12.1-15.2)
[2025-04-07 09:07] LABS: Anion Gap 11.7 mEq/L (5.0-15.0); Potassium 3.7 mEq/L (3.5-5.1)
--- NOTE | 2025-04-07 11:03 | P.PN ---
Date of Service: 04/07/25 Subjective Awake and conversing well expecting surgery today, complaining of vertigo ROS 10 point ROS as noted above, otherwise negative Physical Exam General: AAOx3, NAD HEENT: Atraumatic, PERRLA, EOMI, Sclerae nonicteric Neck: Supple, trachea midline Respiratory: symmetrical chest wall movement, on RA Cardiovascular: mild tachycardia, Normal S1 S2 Gastrointestinal: Normal bowel sounds, No tenderness on palpation Musculoskeletal: No tenderness Integumentary: Other (To right anterior chest wall, sacral area) Neurological: Normal speech, Normal affect Vitals Reviewed Problem list 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 ischial osteomyelitis Breast cancer on immunotherapy Leukocytosis Hyponatremia Malignant right moderate pleural effusion General weakness/deconditioning Diabetes mellitus type [id number]-[id number]-[id number] with hyperglycemia Assessment and Plan 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 ischial osteomyelitis Necrotizing fasciitis of the right buttock extending to the ischial fascia Breast cancer on immunotherapy Leukocytosis Broad-spectrum antibiotics with vancomycin/cefepime surgical consultation, Infectious disease consultation Procalcitonin 1.22, Follow CBC in the morning Reports elevated white blood cell count outpatient with home health at the cancer center every send starting immunotherapy Natovacev for I and D today and tomorrow, NPO after midnight Hyponatremia Monitoring a.m. labs Sodium improving Malignant right moderate pleural effusion Breathing well on room air at this time patient aware of pleural effusion Continue to monitor as needed with chest x-ray General weakness/deconditioning PT consultation Diabetes mellitus type [id number]-[id number]-czfyeszlq with hyperglycemia ACHS Accu-Chek, sliding scale insulin DVT PPX: Lovenox Code status:full Discharge Plan: Home Plan to discharge in: Greater than 2 days
[2025-04-07] MEDS: VANCOMYCIN 1 GM in NA CHLORIDE 0.9% 250 ML IVPB SCH (12:43)
[2025-04-07] MEDS: POTASSIUM CL SA 10 MEQ TAB PO ONE (16:39)
[2025-04-07] MEDS: lisinopriL 10 MG TAB PO SCH (19:15)
--- NOTE | 2025-04-07 22:24 | P.CNS ---
Date of Consult: 04/07/25 Reason for admission: Weakness, sacral wound/osteomyelitis History of Present Illness: 60-year-old female with history of breast cancer on immunotherapy currently and DM presents to the emergency department with generalized weakness. She reports unable to get up or walk to the toilet two days ago. CT of the abdomen pelvis revealed moderate right pleural effusion, large right breast mass with smaller soft tissue masses anterior subcutaneous tissues of the lower chest, ulceration subcutaneous tissues right buttocks. Cortical irregularity right ischium could indicate early osteomyelitis. Pt is treated empirically with cefepime and vancomycin. Allergies meperidine HCl [From Demerol] Allergy (Intermediate, Verified 01/10/12 16:26) Hives Penicillins Allergy (Intermediate, Verified 01/10/12 16:26) Hives/Rash sulfamethoxazole [From Bactrim] Allergy (Verified 01/14/12 18:01) Hives trimethoprim [From Bactrim] Allergy (Verified 01/14/12 18:01) Hives sulfame Allergy (Uncoded 08/22/16 02:27) Unknown Current Medications Hydrocodone Bitart/Acetaminophen (Hydrocodone/Apap 5/325 Mg Tab) 1 tab PO Q6H PRN PRN Reason: Pain scale 5-7 (Moderate) Enoxaparin Sodium (Enoxaparin 40 Mg/0.4 Ml) 40 mg SQ DAILY [facility] Last Admin: 04/07/25 08:20 Dose: Not Given Glucagon (Glucagon 1 Mg/Vial) 1 mg IM 1X PRN PRN Reason: HYPOGLYCEMIA Cefepime HCl 2 gm/ Sodium (Chloride) 100 mls @ 200 mls/hr IV Q12HR LULA; Protocol Last Admin: 04/07/25 20:07 Dose: 100 mls Dextrose (Dextrose 10% Water Iv Soln.) 125 mls @ 0 mls/hr IV PRN PRN; Protocol PRN Reason: HYPOGLYCEMIA Vancomycin HCl 1 gm/ Sodium (Chloride) 250 mls @ 250 mls/hr IVPB Q12H [facility]ULA Last Admin: 04/07/25 12:43 Dose: 250 mls Insulin Human Regular (Insulin Regular (Human) 100 Unit/Ml) 0 unit SQ ACHS [facility]ULA; Protocol Last Admin: 04/07/25 20:08 Dose: 2 unit L-Arginine/L-Glutamine/HMB (Johny Packet) 1 pkt PO BID [facility] Last Admin: 04/07/25 20:07 Dose: 1 pkt Lisinopril (Lisinopril 10 Mg Tab) 10 mg PO DAILY [facility] Last Admin: 04/07/25 19:15 Dose: 10 mg Morphine Sulfate (Morphine 2 Mg/Ml Syr) 2 mg IV Q6H PRN PRN Reason: Pain scale 8-10 (Severe) Last Admin: 04/06/25 23:14 Dose: 2 mg Ondansetron HCl (Ondansetron 4 Mg/2 Ml Vial) 4 mg IV Q6HP PRN PRN Reason: NAUSEA / VOMITING - Past Medical/Surgical History Diabetic: Yes -: Diabetes mellitus type 2 -: panic -: anxiety -: vertigo -: Breast cancer on immunotherapy -: right hand sx -: hysterectomy Psychosocial/ Personal History: Lives at home with her boyfriend, has home health but no PT - Family History Mother -: Diabetes - Social History Alcohol use: No Place of Residence: Home Review of Systems 10-point ROS reviewed and negative unless stated in HPI Physical Examination - Physical Exam General: Alert, In no apparent distress, pale in appearance. HEENT: Atraumatic, PERRLA Neck: Supple, No LAD, Without JVD or thyroid abnormality Respiratory: Diminished (Diminished on the right) Cardiovascular: RRR Gastrointestinal: Normal bowel sounds, No tenderness, ND Integumentary: right breast mass and sacral stage IV, dressing to bilateral legs (pt declined assessment to sacral area and bilateral legs due to pain and dressing already previously done) Neurological: Normal speech, Normal affect, Oriented x3 - Studies Laboratory Data (last 24 hrs) wbc 21.2, Hgb 9.4, platelet 595, BUN 12, cr 0.50 Microbiology 04/05/25 12:39 Blood - Blood Aerobic Blood Culture - Preliminary No growth in 24 hours. 04/05/25 12:39 Blood - Blood Anaerobic Blood Culture - Preliminary No growth in 24 hours. 04/05/25 12:58 Blood - Blood Aerobic Blood Culture - Preliminary No growth in 24 hours. 04/05/25 12:58 Blood - Blood Anaerobic Blood Culture - Preliminary No growth in 24 hours. 04/06/25 wound culture pending Assessment and Plan - Plan Assessment: 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 ischial osteomyelitis s/p debridement 04/06/25 Necrotizing fasciitis of the right buttock extending to the ischial fascia Breast cancer on immunotherapy Leukocytosis (improving) Thrombocytosis Severe protein calorie malnourishment Malignant right moderate pleural effusion Deconditioning Diabetes mellitus type [id number]-bahmjot-rmkhqybsw with hyperglycemia continue Broad-spectrum antibiotics with vancomycin/cefepime tentatively for 6 weeks, pending wound culture result recommend air loss mattress wound and support care, offloading monitor wbc and fever trend case round and in agreement with Dr Malik thank you for the consult
[2025-04-08] MEDS: WATER FOR INJ,STERILE 10 ML ONE (00:51)
[2025-04-08 05:48] LABS: Absolute Basophils 0.1 K/uL (0-0.5); Absolute Eosinophils 0.1 K/uL (0-0.5); Absolute Lymphocytes (CBC) 1.2 K/uL (0.7-4.9); Absolute Monocytes 0.9 K/uL (0.1-1.3); Absolute Neutrophil 11.8 K/uL (1.8-8.0); Basophils % 0.8 % (0-1.3); Hematocrit 26.3 % (36.0-45.0); Hemoglobin 8.4 g/dL (12.0-15.0); Lymphocytes % 8.2 % (15.3-44.8); MCH 27.1 pg (27.0-35.0); MCV 84.7 fL (80-100); MPV 7.2 fL (7.6-11.3); Monocytes % 6.3 % (3.3-12.3); Neutrophils % 83.7 % (41.7-73.7); Platelets 616 thou/uL (152-406); Red Cell Distribution Width 15.9 % (12.1-15.2)
[2025-04-08 05:57] LABS: Anion Gap 6.6 mEq/L (5.0-15.0); Potassium 3.6 mEq/L (3.5-5.1)
[2025-04-08] MEDS: NA CHLORIDE 0.9% 250 ML ONE (07:08)
[2025-04-08] MEDS: KCL 20 MEQ/100 mL IVPB 20 MEQ/100 ML BAG IV SCH (07:08)
[2025-04-08] MEDS: LORazepam 2 MG/ML VIAL IV ONE ×2 (08:46→09:42)
[2025-04-08] MEDS: NA CHLORIDE 0.9% 1,000 ML ONE (11:46)
--- NOTE | 2025-04-08 11:53 | EKG ---
Test Date: 2025-04-05 Test Time: 14:27:25 Die Mounter: HB MEASUREMENT RESULTS: Intervals: Rate: 96 WA: 164 QRSD: 92 QT: 404 QTc: 510 [place]: P: 23 WA: 164 QRS: 46 T: 49 INTERPRETIVE STATEMENTS: Normal sinus rhythm with sinus arrhythmia Low voltage QRS Nonspecific T wave abnormality Prolonged QT Abnormal ECG Compared to ECG 10/23/2023 01:47:01 Low QRS voltage now present T-wave abnormality now present Prolonged QT interval now present Electronically Signed On 04-08-25 11:46:07 CDT by Timothy Cline
[2025-04-08] MEDS: LIDOCAINE HCL/EPINEPHRINE 20 ML MDV ONE (12:30)
[2025-04-08] MEDS ORDERED: LIDOCAINE 1% MPF 5 ML VIAL ONE (12:33)
[2025-04-08] MEDS ORDERED: FENTANYL CITR 100 MCG/2 ML ONE (12:33)
[2025-04-08] MEDS ORDERED: propofoL 200 MG/20 ML VIAL IV ONE (12:33)
[2025-04-08] MEDS ORDERED: MIDAZOLAM HCL 2 MG/2 ML INJ ONE (12:33)
[2025-04-08] MEDS ORDERED: ONDANSETRON 4 MG/2 ML VIAL ONE (12:33)
--- NOTE | 2025-04-08 13:03 | P.PN ---
Date of Service: 04/08/25 Subjective Feeling anxious this morning, awaiting surgery this morning Family at the bedside no new complaints ROS 10 point ROS as noted above, otherwise negative Physical Exam General: Awake, alert, and oriented x3, NAD HEENT: Atraumatic, PERRLA, EOMI, Sclerae nonicteric Neck: Supple, trachea midline Respiratory: nonlabored breathing, on RA Cardiovascular: mild tachycardia, Normal S1 S2 Gastrointestinal: Normal bowel sounds, No tenderness on palpation Musculoskeletal: No tenderness Integumentary: Other (To right anterior chest wall, sacral area) Neurological: Normal speech, Normal affect Vitals Reviewed Problem list 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 ischial osteomyelitis Necrotizing fasciitis of the right buttock extending to the ischial fascia Breast cancer on immunotherapy Leukocytosis- improved Hyponatremia Malignant right moderate pleural effusion General weakness/deconditioning Diabetes mellitus type 8szq-[id number]-gnzumhwfb with hyperglycemia Assessment and Plan 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 ischial osteomyelitis Necrotizing fasciitis of the right buttock extending to the ischial fascia Breast cancer on immunotherapy Leukocytosis- improved WBC 14.1 Broad-spectrum antibiotics with vancomycin/cefepime Procalcitonin 1.22, Follow CBC in the morning Reports elevated white blood cell count outpatient with home health at the cancer center every send starting immunotherapy Dr. Malik following, awaiting culture results, likely 6 weeks of IV antibiotics needed, continue vanc/cefepime Kovacev for I and D today and tomorrow, NPO after midnight Continue dressing to right breast Hyponatremia Na 133 Monitoring a.m. labs Sodium improving Malignant right moderate pleural effusion Breathing well on room air at this time patient aware of pleural effusion Continue to monitor as needed with chest x-ray General weakness/deconditioning PT consultation Diabetes mellitus type [id number]-cedvuda-sncrcxisd with hyperglycemia ACHS Accu-Chek, sliding scale insulin DVT PPX: Lovenox Code status:full Discharge Plan: Home Plan to discharge in: Greater than 2 days
[2025-04-08] MEDS ORDERED: Phenylephrine HCl 10 MG/ML 1 ML VIAL ONE (13:27)
[2025-04-08] MEDS: COLLAGENASE 30 GM OINTMENT TOP ONE (13:49)
--- NOTE | 2025-04-08 13:54 | P.OP ---
Preoperative diagnosis: Necrotizing Fasciitis of RIGHT Buttock Postoperative diagnosis: Necrotizing Fasciitis of RIGHT Buttock Primary procedure: Wide Local Debridement of Necrotizing fasciitis of RIGHT Buttock Anesthesia: GETA Estimated blood loss: <10cc Specimen: Debridement Tissues Findings: ~ 25x16 down to fascia over bone Complications: None Transferred to: Recovery Room Condition: Good
--- NOTE | 2025-04-08 14:59 | OP ---
Date of Procedure: 04/08/2025 Surgeon: Dany Garcia MD, Preoperative Diagnosis: Necrotizing fasciitis of right buttock. Postoperative Diagnosis: Necrotizing fasciitis of right buttock. Procedure Performed: Wide debridement of necrotizing fasciitis of the right buttock. Anesthesia: General endotracheal. Estimated Blood Loss: 10 cc. Specimen Removed: Tissues. Findings: Approximately 25 x 16 cm defect down to the fascia overlying the bone. Complications: None. She was transferred to recovery room in good condition. Procedure In Detail: After informed consent was obtained, the patient was brought to the operating r oom, prepped and draped in the usual sterile fashion. After adequate anesthesia achieved, I continue d to debride down from the previous debridement, which was performed for approximately 2 days ago for necrotizing soft tissue fasciitis. At this point, I inspected the area. There was additional necro sis this morning and as such, proceeded as described in the case. I debrided the area using a combin ation of predominant sharp dissection with curette and pickups and scissors, removing all nonviable t issue. There was minimal amount of nonviable tissue circumferentially around the leading edges of th e proximal and distal edges near the ischium predominantly and on the lateral edge as well, the most lateral border. These areas were debrided down to good healthy bleeding tissue and the area was copi ously irrigated once again. At this point, hemostasis achieved with electrocautery. The wound was t hen packed after being irrigated copiously. Sterile saline with Kerlix rolls x2 with Vashe damp to d ry inside the cavity and a sterile dressing placed over top. Patient tolerated the procedure well wi thout incident or complication, transferred to PACU in good condition. All counts correct at the end of the case. TK/MODL Voice ID: [id number] Report ID: [id number]
[2025-04-08] MEDS: HYDROCODONE/APAP 5/325 MG TAB PO PRN (17:57)
--- NOTE | 2025-04-08 22:34 | PN ---
The patient is out for surgical debridement. Labs were reviewed, and the patient is still showing le ukocytosis. Cultures are growing ESBL, Proteus mirabilis, and Enterobacter aerogenes. The patient i s currently on cefepime and vancomycin. We will recommend the patient to be switched to meropenem as she is growing ESBL. We will follow the patient tomorrow. NF/MODL Voice ID: [id number] Report ID: [id number]
[2025-04-09 08:32] LABS: Absolute Eosinophils 0.1 K/uL (0-0.5); Absolute Lymphocytes (CBC) 0.8 K/uL (0.7-4.9); Absolute Monocytes 0.6 K/uL (0.1-1.3); Basophils % 0.4 % (0-1.3); Eosinophils % 0.9 % (0-4.4); Hematocrit 30.3 % (36.0-45.0); Hemoglobin 9.6 g/dL (12.0-15.0); Lymphocytes % 7.8 % (15.3-44.8); MCH 26.8 pg (27.0-35.0); MCHC 31.8 g/dL (32.0-36.0); MCV 84.3 fL (80-100); MPV 6.8 fL (7.6-11.3); Neutrophils % 84.9 % (41.7-73.7); Platelets 675 thou/uL (152-406); RBC Red Blood Cell Count 3.59 M/uL (3.86-4.86); Red Cell Distribution Width 16.1 % (12.1-15.2)
[2025-04-09 08:58] LABS: Anion Gap 8.7 mEq/L (5.0-15.0); Potassium 3.7 mEq/L (3.5-5.1)
[2025-04-09] MEDS ORDERED: Meropenem 500 MG in NA CHLORIDE 0.9% 100 ML IV SCH (09:00)
[2025-04-09] MEDS: Meropenem 1,000 MG in NA CHLORIDE 0.9% 100 ML IV SCH (09:25)
[2025-04-09] MEDS: Mupirocin NASAL 2 APPL/1 GM TUBE NAS SCH (09:26)
--- NOTE | 2025-04-09 10:30 | RAD REPORT ---
EXAM: Chest Single View HISTORY: 64 years Female PICC LINE Placement COMPARISON: 04/05/2025 FINDINGS: LUNGS/PLEURA: Moderate right pleural effusion similar in size and with probable underlying atelectasi s. Small left pleural effusion. Bilateral pulmonary nodules. CARDIAC/MEDIASTINUM: Stable size and configuration. UPPER ABDOMEN: No significant abnormality. BONES: No acute abnormality. LINES/TUBES/OTHER: Left subclavian approach PICC with tip overlying the proximal SVC in satisfactory position. IMPRESSION: Left subclavian approach PICC with tip overlying the proximal SVC. Moderate right and small left pleu ral effusion with known pulmonary metastatic disease.
--- NOTE | 2025-04-09 13:05 | P.PN ---
Date of Service: 04/09/25 Subjective Sleeping/resting comfortably, plan for surgery tomorrow morning no new complaints ROS 10 point ROS as noted above, otherwise negative Physical Exam General: oriented x3, NAD HEENT: Atraumatic, PERRLA Neck: Supple, trachea midline Respiratory: nonlabored breathing, on RA Cardiovascular: RRR, Normal S1 S2 Gastrointestinal: Normal bowel sounds, No tenderness on palpation Musculoskeletal: No tenderness Integumentary: Other (To right anterior chest wall, sacral area) Neurological: Normal speech, Normal affect Vitals Reviewed Problem list 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 ischial osteomyelitis Necrotizing fasciitis of the right buttock extending to the ischial fascia Breast cancer on immunotherapy Leukocytosis- improved Hyponatremia Malignant right moderate pleural effusion General weakness/deconditioning Diabetes mellitus type 7ves-ndkebtf-yfvfebhgo with hyperglycemia Assessment and Plan 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 ischial osteomyelitis Necrotizing fasciitis of the right buttock extending to the ischial fascia Breast cancer on immunotherapy Leukocytosis- improved WBC 10.6 Broad-spectrum antibiotics with vancomycin/cefepime Procalcitonin 1.22, Follow CBC in the morning Reports elevated white blood cell count outpatient with home health at the cancer center every send starting immunotherapy Dr. Malik following, wound cultures growing Proteus Mirabilis ESBL, Klebsiella Oxytoca, Enterobacter Aerogenes, 6 weeks of IV Merrem, Picc line placed [facility] for I and D today and tomorrow, NPO after midnight Continue dressing to right breast Hyponatremia Na 135 Monitoring a.m. labs Sodium improving Malignant right moderate pleural effusion Breathing well on room air at this time patient aware of pleural effusion Continue to monitor as needed with chest x-ray General weakness/deconditioning PT consultation Diabetes mellitus type [id number]-ibftarx-ylxsetdww with hyperglycemia ACHS Accu-Chek, sliding scale insulin DVT PPX: Lovenox Code status:full Discharge Plan: Home Plan to discharge in: Greater than 2 days
[2025-04-09] MEDS: COLLAGENASE 30 GM OINTMENT TOP SCH (23:00)
--- NOTE | 2025-04-09 23:07 | P.PN ---
Date of Service: 04/09/25 Subjective Pt denied s/e with abx. states no concern or complaints. pt is not in any distress. No fever/chill Temp Pulse Resp BP Pulse Ox 97.8 F 90 18 176/61 H 98 04/09/25 20:00 04/09/25 20:00 04/09/25 22:31 04/09/25 20:00 04/09/25 22:31 Physical Examination - Physical Exam General: Alert, In no apparent distress, pale in appearance. HEENT: Atraumatic, PERRLA Neck: Supple, No LAD, Without JVD or thyroid abnormality Respiratory: CTA Cardiovascular: RRR Gastrointestinal: Normal bowel sounds, No tenderness, ND Integumentary: right breast mass and sacral PI stage IV, dressing to bilateral legs Neurological: Normal speech, Normal affect, Oriented x3 - Studies Laboratory Data (last 24 hrs) wbc 21.2, Hgb 9.4, platelet 595, BUN 12, cr 0.50 Microbiology 04/05/25 12:39 Blood - Blood Aerobic Blood Culture - Preliminary No growth in 24 hours. 04/05/25 12:39 Blood - Blood Anaerobic Blood Culture - Preliminary No growth in 24 hours. 04/05/25 12:58 Blood - Blood Aerobic Blood Culture - Preliminary No growth in 24 hours. 04/05/25 12:58 Blood - Blood Anaerobic Blood Culture - Preliminary No growth in 24 hours. 04/06/25 wound culture proteus mirabilis ESBL, Klebsiella Oxytoca 04/05/25: right lower leg proteus mirabilis ESBL 04/05/25: Wound right buttock: proteus mirabilis ESBL and Enterobacter Assessment and Planning 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 ischial osteomyelitis s/p debridement 04/06/25 Necrotizing fasciitis of the right buttock extending to the ischial fascia Breast cancer on immunotherapy Leukocytosis (improving) Thrombocytosis Severe protein calorie malnourishment Malignant right moderate pleural effusion Deconditioning Diabetes mellitus type [id number]-aakzsbogd with hyperglycemia continue merrem for a total of 6 weeks. tentative stop date may 21 wound and support care, offloading monitor wbc and fever trend case round and in agreement with Dr Malik
[2025-04-10 05:02] LABS: Absolute Eosinophils 0.1 K/uL (0-0.5); Absolute Lymphocytes (CBC) 1.1 K/uL (0.7-4.9); Absolute Monocytes 0.8 K/uL (0.1-1.3); Absolute Neutrophil 8.7 K/uL (1.8-8.0); Basophils % 0.2 % (0-1.3); Hematocrit 28.5 % (36.0-45.0); Hemoglobin 9.1 g/dL (12.0-15.0); Lymphocytes % 9.8 % (15.3-44.8); MCH 26.7 pg (27.0-35.0); MCHC 31.9 g/dL (32.0-36.0); MCV 83.8 fL (80-100); MPV 6.9 fL (7.6-11.3); Monocytes % 7.4 % (3.3-12.3); Neutrophils % 81.6 % (41.7-73.7); Nucleated Red Blood Cells % 0.1 % (0-0); Platelets 648 thou/uL (152-406); Red Cell Distribution Width 16.5 % (12.1-15.2)
[2025-04-10 05:13] LABS: Anion Gap 8.8 mEq/L (5.0-15.0); Magnesium 1.8 mg/dL (1.6-2.4); Phosphorus 1.8 mg/dL (2.5-4.9); Potassium 3.8 mEq/L (3.5-5.1)
[2025-04-10] MEDS ORDERED: POTASS/SODIUM PHOSPHATE 1 PKT POWD.PACK PO SCH (08:00)
[2025-04-10] MEDS: POTASS/SODIUM PHOSPHATE 1 PKT POWD.PACK PO SCH (09:00)
[2025-04-10] MEDS: MORPHINE 2 MG/ML SYR IV ONE (10:15)
--- NOTE | 2025-04-10 15:40 | PN ---
Subjective: The patient lying in bed, status post surgical debridement. No new acute event. Chart reviewed. Objective: Vital Signs: Temperature 97, pulse 84, respirations 16, blood pressure 151/68. BUN 11, creatinine 0.4. Lungs: Basal crackles. Heart: S1, S2, regular. Abdomen: Soft, nontender. Bowel sounds present. Extremities: Edematous changes noted. Assessment And Plan: 1. Sacral stage IV decubitus with possible ischial osteomyelitis, Proteus mirabilis, ESBL infection w ith polymicrobial cultures positive in the previous cultures, Klebsiella oxytoca, Proteus mirabilis a nd Enterobacter aerogenes. 2. History of breast cancer, on chemotherapy. 3. Necrotizing fascitis of the right buttock extending to the ischial fascia. 4. Leukocytosis, improving. 5. Continue current empiric antibiotic with meropenem, awaiting transfer to long-term facility. We w ill follow the patient as needed. NF/MODL Voice ID: [id number] Report ID: [id number]
--- NOTE | 2025-04-10 21:22 | P.PN ---
Date of Service: 04/10/25 Subjective awake and conversing well Discussed need for IV antibiotics, reports SNF as her best option to complete treatment Awaiting surgery this morning no new complaints ROS 10 point ROS as noted above, otherwise negative Physical Exam General: oriented x3, afebrile Neck: Supple, trachea midline Respiratory: Clear BBS, on RA Cardiovascular: RRR, Normal S1 S2 Gastrointestinal: No tenderness on palpation, hypoactive bowel sounds Musculoskeletal: No tenderness Integumentary: Other (To right anterior chest wall, sacral area) Neurological: Normal speech, Normal affect Vitals Reviewed Problem list 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 ischial osteomyelitis Necrotizing fasciitis of the right buttock extending to the ischial fascia Breast cancer on immunotherapy Leukocytosis- improved Hyponatremia Malignant right moderate pleural effusion General weakness/deconditioning Diabetes mellitus type 9bcg-qjdrkeo-bahxsrukv with hyperglycemia Assessment and Plan 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 ischial osteomyelitis Necrotizing fasciitis of the right buttock extending to the ischial fascia Breast cancer on immunotherapy Leukocytosis- improved WBC 10.6 Stopped vancomycin/cefepime, Started Merrem (04/09) Procalcitonin 1.22, Follow CBC in the morning Reports elevated white blood cell count outpatient with home health at the cancer center every send starting immunotherapy Dr. Malik following, wound cultures growing Proteus Mirabilis ESBL, Klebsiella Oxytoca, Enterobacter Aerogenes, 6 weeks of IV Merrem, Picc line placed Jose following Continue dressing to right breast Hyponatremia Monitoring a.m. labs Sodium improving Malignant right moderate pleural effusion On room air, no acute distress noted Continue to monitor as needed with chest x-ray General weakness/deconditioning PT consultation Diabetes mellitus type [id number]-[id number]-zmqbnnopk with hyperglycemia ACHS Accu-Chek, sliding scale insulin DVT PPX: Lovenox Code status:full Discharge Plan: SNF Plan to discharge in: Greater than 2 days
[2025-04-11] MEDS: ONDANSETRON 4 MG/2 ML VIAL IV PRN (02:30)
[2025-04-11 06:18] LABS: Absolute Eosinophils 0.1 K/uL (0-0.5); Absolute Lymphocytes (CBC) 1.2 K/uL (0.7-4.9); Absolute Monocytes 0.5 K/uL (0.1-1.3); Absolute Neutrophil 7.5 K/uL (1.8-8.0); Eosinophils % 0.9 % (0-4.4); Hematocrit 30.3 % (36.0-45.0); Hemoglobin 9.7 g/dL (12.0-15.0); Lymphocytes % 13.4 % (15.3-44.8); MCH 26.6 pg (27.0-35.0); MCV 83.3 fL (80-100); MPV 6.5 fL (7.6-11.3); Monocytes % 5.1 % (3.3-12.3); Neutrophils % 80.6 % (41.7-73.7); Platelets 669 thou/uL (152-406); RBC Red Blood Cell Count 3.63 M/uL (3.86-4.86); Red Cell Distribution Width 16.3 % (12.1-15.2)
[2025-04-11] MEDS: LIDOCAINE JELLY 2%- 5 ML TUBE TOP ONE (09:30)
--- NOTE | 2025-04-11 16:42 | P.PN ---
Date of Service: 04/11/25 Subjective Discussion on placement option for IV abx needs and wound care- [facility] is her choice no new complaints ROS 10 point ROS as noted above, otherwise negative Physical Exam General: Awake and oriented x3, afebrile Neck: Supple, trachea midline Respiratory: Nonlabored breathing, on RA Cardiovascular: RRR, Normal S1 S2 Gastrointestinal: No tenderness on palpation, hypoactive bowel sounds Musculoskeletal: No tenderness Integumentary: Other (To right anterior chest wall, sacral area) Neurological: Normal speech, Normal affect Vitals Reviewed Problem list 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 ischial osteomyelitis Necrotizing fasciitis of the right buttock extending to the ischial fascia Breast cancer on immunotherapy Leukocytosis- improved Hyponatremia Malignant right moderate pleural effusion General weakness/deconditioning Diabetes mellitus type 0zfk-wgbtlhr-equpcknhy with hyperglycemia Assessment and Plan 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 ischial osteomyelitis Necrotizing fasciitis of the right buttock extending to the ischial fascia Breast cancer on immunotherapy Leukocytosis-resolved Stopped vancomycin/cefepime, Started Merrem (04/09) Procalcitonin 1.22 Reports elevated white blood cell count outpatient with home health at the cancer center every send starting immunotherapy Dr. Malik following, wound cultures growing Proteus Mirabilis ESBL, Klebsiella Oxytoca, Enterobacter Aerogenes, 6 weeks of IV Merrem, Picc line placed Jose harris Continue dressing to right breast Daily dressing changes: Remove all dressings from buttock wound irrigate with sterile saline then repack with Kerlix rolls x 2 damp with Vashe then cover with dry gauze skin to be covered with triple antibiotic ointment to all affected wounds sterile dressing to be applied over the top. Hyponatremia Monitoring a.m. labs Sodium improving Malignant right moderate pleural effusion On room air, no acute distress noted Continue to monitor as needed with chest x-ray General weakness/deconditioning PT consultation Diabetes mellitus type 0glk-fzzzuvu-lixkbpmkf with hyperglycemia ACHS Accu-Chek, sliding scale insulin DVT PPX: Lovenox Code status:full Discharge Plan: SNF Plan to discharge in: Greater than 2 days
[2025-04-12] MEDS: LORazepam 2 MG/ML VIAL IV ONE (03:24)
[2025-04-12 04:34] LABS: Absolute Basophils 0.1 K/uL (0-0.5); Absolute Eosinophils 0.1 K/uL (0-0.5); Absolute Lymphocytes (CBC) 1.2 K/uL (0.7-4.9); Absolute Monocytes 0.7 K/uL (0.1-1.3); Absolute Neutrophil 8.3 K/uL (1.8-8.0); Basophils % 0.6 % (0-1.3); Hematocrit 29.7 % (36.0-45.0); Hemoglobin 9.7 g/dL (12.0-15.0); Lymphocytes % 11.3 % (15.3-44.8); MCH 27.3 pg (27.0-35.0); MCHC 32.5 g/dL (32.0-36.0); MPV 6.9 fL (7.6-11.3); Monocytes % 6.7 % (3.3-12.3); Neutrophils % 80.4 % (41.7-73.7); Nucleated Red Blood Cells % 0.1 % (0-0); Platelets 587 thou/uL (152-406); RBC Red Blood Cell Count 3.54 M/uL (3.86-4.86); Red Cell Distribution Width 16.3 % (12.1-15.2)
[2025-04-12 04:46] LABS: Anion Gap 6.8 mEq/L (5.0-15.0); Magnesium 1.8 mg/dL (1.6-2.4); Phosphorus 2.4 mg/dL (2.5-4.9); Potassium 3.8 mEq/L (3.5-5.1)
[2025-04-12] MEDS: LIDOCAINE JELLY 2%- 5 ML TUBE TOP ONE (11:51)
--- NOTE | 2025-04-12 14:21 | P.PN ---
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 Necrotizing fasciitis of the right buttock extending to the ischial fascia Breast cancer on immunotherapy Leukocytosis- improved Hyponatremia Malignant right moderate pleural effusion General weakness/deconditioning Diabetes mellitus type 4ckl-vrtabup-iuevsbpkj with hyperglycemia Plan 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 ischial osteomyelitis Necrotizing fasciitis of the right buttock extending to the ischial fascia Breast cancer on immunotherapy Leukocytosis-resolved Stopped vancomycin/cefepime, Started Merrem (04/09) Procalcitonin 1.22 Reports elevated white blood cell count outpatient with home health at the cancer center every send starting immunotherapy Dr. Malik following, wound cultures growing Proteus Mirabilis ESBL, Klebsiella Oxytoca, Enterobacter Aerogenes, 6 weeks of IV Merrem, Picc line placed Samson following Continue dressing to right breast Daily dressing changes: Remove all dressings from buttock wound irrigate with sterile saline then repack with Kerlix rolls x 2 damp with Vashe then cover with dry gauze skin to be covered with triple antibiotic ointment to all affected wounds sterile dressing to be applied over the top. Pending SNF for continued care Hyponatremia Monitoring a.m. labs Sodium improving Malignant right moderate pleural effusion On room air, no acute distress noted Continue to monitor as needed with chest x-ray General weakness/deconditioning PT consultation Diabetes mellitus type 8rld-sblcwat-tjjycxids with hyperglycemia ACHS Accu-Chek, sliding scale insulin DVT PPX: Lovenox Code status:full Discharge Plan: SNF Plan to discharge in: Greater than 2 days
--- NOTE | 2025-04-12 21:17 | P.PN ---
Date of Service: 04/12/25 Subjective Pt denied s/e with abx. states no concern or complaints. pt is not in any distress. No fever/chill Temp Pulse Resp BP Pulse Ox 98.1 F 96 H 18 169/74 H 95 04/12/25 20:00 04/12/25 20:00 04/12/25 20:00 04/12/25 20:00 04/12/25 20:00 Physical Examination - Physical Exam General: Alert, In no apparent distress, pale in appearance. HEENT: Atraumatic, PERRLA Neck: Supple, No LAD, Without JVD or thyroid abnormality Respiratory: CTA Cardiovascular: RRR Gastrointestinal: Normal bowel sounds, No tenderness, ND Integumentary: right breast mass and sacral PI stage IV, dressing to bilateral legs Neurological: Normal speech, Normal affect, Oriented x3 - Studies Laboratory Data (last 24 hrs) wbc 10.3, Hgb 9.7, platelet 587, BUN 14, cr 0.37 Microbiology 04/05/25 12:39 Blood - Blood Aerobic Blood Culture - Preliminary No growth in 24 hours. 04/05/25 12:39 Blood - Blood Anaerobic Blood Culture - Preliminary No growth in 24 hours. 04/05/25 12:58 Blood - Blood Aerobic Blood Culture - Preliminary No growth in 24 hours. 04/05/25 12:58 Blood - Blood Anaerobic Blood Culture - Preliminary No growth in 24 hours. 04/06/25 wound culture proteus mirabilis ESBL, Klebsiella Oxytoca 04/05/25: right lower leg proteus mirabilis ESBL 04/05/25: Wound right buttock: proteus mirabilis ESBL and Enterobacter Assessment and Planning 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 ischial osteomyelitis s/p debridement 04/06/25 Necrotizing fasciitis of the right buttock extending to the ischial fascia Breast cancer on immunotherapy Leukocytosis (improved) Thrombocytosis Severe protein calorie malnourishment Malignant right moderate pleural effusion Deconditioning Diabetes mellitus type 8idm-kosgnsf-nlpqrdfxq with hyperglycemia continue merrem for a total of 6 weeks. tentative stop date may 21 wound and support care, offloading monitor wbc and fever trend case round and in agreement with Dr Malik
[2025-04-13 04:59] LABS: Absolute Basophils 0.1 K/uL (0-0.5); Absolute Eosinophils 0.1 K/uL (0-0.5); Absolute Lymphocytes (CBC) 1.1 K/uL (0.7-4.9); Absolute Monocytes 0.6 K/uL (0.1-1.3); Absolute Neutrophil 9.5 K/uL (1.8-8.0); Basophils % 0.9 % (0-1.3); Hemoglobin 9.3 g/dL (12.0-15.0); Lymphocytes % 9.9 % (15.3-44.8); MCH 26.6 pg (27.0-35.0); MCV 83.3 fL (80-100); MPV 6.7 fL (7.6-11.3); Monocytes % 5.3 % (3.3-12.3); Neutrophils % 82.9 % (41.7-73.7); Platelets 553 thou/uL (152-406); RBC Red Blood Cell Count 3.48 M/uL (3.86-4.86); Red Cell Distribution Width 16.5 % (12.1-15.2)
[2025-04-13 05:14] LABS: Anion Gap 8.7 mEq/L (5.0-15.0); Magnesium 1.9 mg/dL (1.6-2.4); Phosphorus 2.5 mg/dL (2.5-4.9); Potassium 3.7 mEq/L (3.5-5.1)
[2025-04-13] MEDS: POTASSIUM CL SA 10 MEQ TAB PO ONE (09:32)
--- NOTE | 2025-04-13 10:01 | P.PN ---
Date of Service: 04/13/25 Subjective No acute events overnight Pending SNF for IV abx, PT, wound care ROS 10 point ROS as noted above, otherwise negative Physical Exam General: Awake and oriented x3, afebrile Neck: Supple, trachea midline Respiratory: Nonlabored breathing, on RA Cardiovascular: RRR, Normal S1 S2 Gastrointestinal: No tenderness on palpation, hypoactive bowel sounds Musculoskeletal: No tenderness Integumentary: Other (To right anterior chest wall, sacral area) Neurological: Normal speech, Normal affect Vitals Reviewed Problem list 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 ischial osteomyelitis Necrotizing fasciitis of the right buttock extending to the ischial fascia Breast cancer on immunotherapy Leukocytosis- improved Hyponatremia Malignant right moderate pleural effusion General weakness/deconditioning Diabetes mellitus type 6wut-peiqzni-hnjbhuzoo with hyperglycemia Plan 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 ischial osteomyelitis Necrotizing fasciitis of the right buttock extending to the ischial fascia Breast cancer on immunotherapy Leukocytosis-resolved Stopped vancomycin/cefepime, Started Merrem (04/09) Procalcitonin 1.22 Reports elevated white blood cell count outpatient with home health at the cancer center every send starting immunotherapy Dr. Malik following, wound cultures growing Proteus Mirabilis ESBL, Klebsiella Oxytoca, Enterobacter Aerogenes, 6 weeks of IV Merrem, Picc line placed Samson following Continue dressing to right breast Daily dressing changes: Remove all dressings from buttock wound irrigate with sterile saline then repack with Kerlix rolls x 2 damp with Vashe then cover with dry gauze skin to be covered with triple antibiotic ointment to all affected wounds sterile dressing to be applied over the top. Pending SNF for continued care Prefers private transportation to SNF if possible Hyponatremia Monitoring a.m. labs Sodium improving Malignant right moderate pleural effusion On room air, no acute distress noted Continue to monitor as needed with chest x-ray General weakness/deconditioning PT consultation Diabetes mellitus type 2dht-vgbihrx-gmyevlmlg with hyperglycemia ACHS Accu-Chek, sliding scale insulin DVT PPX: Lovenox Code status:full Discharge Plan: SNF Plan to discharge in: Greater than 2 days
[2025-04-13] MEDS: LIDOCAINE HCL JELLY 2% 6 ML SYRINGE TOP PRN (11:39)
--- NOTE | 2025-04-13 19:47 | PN ---
Subjective: The patient is lying in bed. Denies any new problems. No acute event, overnight. Objective: Vital Signs: Temperature 98, pulse 82, respirations 16, blood pressure 147/66. Lungs: Basal crackles. Heart: S1, S2. Regular. Abdomen: Soft, nontender. Bowel sounds present. Extremities: Wound noted. Laboratory Data: Shows WBC 11.5, hemoglobin 9.3, platelets are 553, BUN of 8, creatinine 0.4. Assessment And Plan: 1. Sacral stage IV wound with ischial osteomyelitis. 2. Necrotizing fasciitis of the right buttock extending to the ischial fascia. 3. History of breast cancer, on immunotherapy. 4. Leukocytosis. 5. Pleural effusion, most likely secondary to malignancy. 6. Diabetes mellitus. 7. 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 Continue cefazolin. Continue collagenase, meropenem, and local wound care. We will follow the patie nt closely. No other recommendation at this time. NF/MODL Voice ID: [id number] Report ID: [id number]
[2025-04-13] MEDS: DIAZEPAM 5 MG TABLET PO PRN (22:11)
[2025-04-14 05:49] LABS: Absolute Basophils 0.1 K/uL (0-0.5); Absolute Eosinophils 0.1 K/uL (0-0.5); Absolute Lymphocytes (CBC) 1.2 K/uL (0.7-4.9); Absolute Monocytes 0.6 K/uL (0.1-1.3); Absolute Neutrophil 8.5 K/uL (1.8-8.0); Basophils % 1.1 % (0-1.3); Eosinophils % 1.4 % (0-4.4); Hemoglobin 9.9 g/dL (12.0-15.0); MCHC 32.1 g/dL (32.0-36.0); MCV 84.2 fL (80-100); MPV 6.4 fL (7.6-11.3); Monocytes % 5.3 % (3.3-12.3); Neutrophils % 81.2 % (41.7-73.7); Nucleated Red Blood Cells % 0.1 % (0-0); Platelets 527 thou/uL (152-406); RBC Red Blood Cell Count 3.68 M/uL (3.86-4.86)
[2025-04-14 06:04] LABS: Anion Gap 7.1 mEq/L (5.0-15.0); Phosphorus 2.5 mg/dL (2.5-4.9); Potassium 4.1 mEq/L (3.5-5.1)
[2025-04-14] MEDS: LIDOCAINE HCL JELLY 2% 6 ML SYRINGE TOP SCH (13:45)
--- NOTE | 2025-04-14 14:37 | P.PN ---
Date of Service: 04/14/25 Subjective No acute events overnight Pending SNF for IV abx, PT, wound care ROS 10 point ROS as noted above, otherwise negative Physical Exam General: Awake and oriented x3, afebrile Neck: Supple, trachea midline Respiratory: Nonlabored breathing, on RA Cardiovascular: RRR, Normal S1 S2 Gastrointestinal: No tenderness on palpation, hypoactive bowel sounds Musculoskeletal: No tenderness Integumentary: Other (To right anterior chest wall, sacral area) Neurological: Normal speech, Normal affect Vitals Reviewed Problem list 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 ischial osteomyelitis Necrotizing fasciitis of the right buttock extending to the ischial fascia Breast cancer on immunotherapy Leukocytosis- improved Hyponatremia Malignant right moderate pleural effusion General weakness/deconditioning Diabetes mellitus type 5lbx-sxnlxek-ppujvrobj with hyperglycemia Plan 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 ischial osteomyelitis Necrotizing fasciitis of the right buttock extending to the ischial fascia Breast cancer on immunotherapy Leukocytosis-resolved Stopped vancomycin/cefepime, Started Merrem (04/09) Procalcitonin 1.22 Reports elevated white blood cell count outpatient with home health at the cancer center every send starting immunotherapy Dr. Malik following, wound cultures growing Proteus Mirabilis ESBL, Klebsiella Oxytoca, Enterobacter Aerogenes, 6 weeks of IV Merrem, Picc line placed Samson following Continue dressing to right breast Daily dressing changes: Remove all dressings from buttock wound irrigate with sterile saline then repack with Kerlix rolls x 2 damp with Vashe then cover with dry gauze skin to be covered with triple antibiotic ointment to all affected wounds sterile dressing to be applied over the top. Pending SNF for continued care Prefers private transportation to SNF if possible Hyponatremia Monitoring a.m. labs Sodium improving Malignant right moderate pleural effusion On room air, no acute distress noted Continue to monitor as needed with chest x-ray General weakness/deconditioning PT consultation Diabetes mellitus type 6yhc-ajubnkt-zycnaamdd with hyperglycemia ACHS Accu-Chek, sliding scale insulin DVT PPX: Lovenox Code status:full Discharge Plan: SNF Plan to discharge in: Greater than 2 days
--- NOTE | 2025-04-14 20:16 | P.PN ---
Date of Service: 04/14/25 Subjective Pt denied s/e with abx. states no concern or complaints. pt is not in any distress. No fever/chill Temp Pulse Resp BP Pulse Ox 97.7 F 83 16 134/68 96 04/14/25 16:00 04/14/25 16:00 04/14/25 16:00 04/14/25 16:00 04/14/25 16:00 Physical Examination - Physical Exam General: Alert, In no apparent distress, pale in appearance. HEENT: Atraumatic, PERRLA Neck: Supple, No LAD, Without JVD or thyroid abnormality Respiratory: CTA Cardiovascular: RRR Gastrointestinal: Normal bowel sounds, No tenderness, ND Integumentary: right breast mass and sacral PI stage IV, dressing to bilateral legs Neurological: Normal speech, Normal affect, Oriented x3 - Studies Laboratory Data (last 24 hrs) wbc 10.5, Hgb 9.9, platelet 527, BUN 13, cr 0.41 Microbiology 04/05/25 12:39 Blood - Blood Aerobic Blood Culture - Preliminary No growth in 24 hours. 04/05/25 12:39 Blood - Blood Anaerobic Blood Culture - Preliminary No growth in 24 hours. 04/05/25 12:58 Blood - Blood Aerobic Blood Culture - Preliminary No growth in 24 hours. 04/05/25 12:58 Blood - Blood Anaerobic Blood Culture - Preliminary No growth in 24 hours. 04/06/25 wound culture proteus mirabilis ESBL, Klebsiella Oxytoca 04/05/25: right lower leg proteus mirabilis ESBL 04/05/25: Wound right buttock: proteus mirabilis ESBL and Enterobacter Assessment and Planning 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 ischial osteomyelitis s/p debridement 04/06/25 Necrotizing fasciitis of the right buttock extending to the ischial fascia Breast cancer on immunotherapy Leukocytosis (improved) Thrombocytosis Severe protein calorie malnourishment Malignant right moderate pleural effusion Deconditioning Diabetes mellitus type 1ady-pkvezyk-zscniwnyw with hyperglycemia continue merrem for a total of 6 weeks. tentative stop date may 21 wound and support care, offloading monitor wbc and fever trend case round and in agreement with Dr Malik
--- NOTE | 2025-04-15 10:21 | P.PN ---
Date of Service: 04/15/25 Subjective No acute events overnight Pending SNF for IV abx, PT, wound care Doing well, awaiting approval for SNF in network No complaints ROS 10 point ROS as noted above, otherwise negative Physical Exam General: Awake and oriented x3, afebrile Neck: Supple, trachea midline Respiratory: Nonlabored breathing, on RA Cardiovascular: RRR, Normal S1 S2 Gastrointestinal: No tenderness on palpation, hypoactive bowel sounds Musculoskeletal: No tenderness Integumentary: Other (To right anterior chest wall, sacral area) Neurological: Normal speech, Normal affect Vitals Reviewed Problem list 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 ischial osteomyelitis Necrotizing fasciitis of the right buttock extending to the ischial fascia Breast cancer on immunotherapy Leukocytosis- improved Hyponatremia Malignant right moderate pleural effusion General weakness/deconditioning Diabetes mellitus type 5gbt-jobngyg-etbxgrqxw with hyperglycemia Plan 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 ischial osteomyelitis Necrotizing fasciitis of the right buttock extending to the ischial fascia Breast cancer on immunotherapy Leukocytosis-resolved Stopped vancomycin/cefepime, Started Merrem (04/09) Procalcitonin 1.22 Reports elevated white blood cell count outpatient with home health at the cancer center every send starting immunotherapy Dr. Malik following, wound cultures growing Proteus Mirabilis ESBL, Klebsiella Oxytoca, Enterobacter Aerogenes, 6 weeks of IV Merrem, Picc line placed Jose harris Continue dressing to right breast Daily dressing changes: Remove all dressings from buttock wound irrigate with sterile saline then repack with Kerlix rolls x 2 damp with Vashe then cover with dry gauze skin to be covered with triple antibiotic ointment to all affected wounds sterile dressing to be applied over the top. Pending SNF for continued care Prefers private transportation to SNF Patient requesting we ensure valium to be continued as needed as SNF on med rec Hyponatremia Sodium improved and stable Malignant right moderate pleural effusion On room air, no acute distress noted Continue to monitor as needed with chest x-ray General weakness/deconditioning PT consultation Diabetes mellitus type 9vtt-wqyelqk-twifzlngq with hyperglycemia ACHS Accu-Chek, sliding scale insulin DVT PPX: Lovenox Code status:full Discharge Plan: SNF Plan to discharge in: Greater than 2 days
[2025-04-15] MEDS: MORPHINE 2 MG/ML SYR IV PRN (13:49)
--- NOTE | 2025-04-15 21:14 | PN ---
Subjective: The patient is lying in bed, awaiting [facility]iary placement. Denies any other problems . Was able to eat better today. Objective: Vital Signs: Temperature 97.7, pulse 86, respirations 14, blood pressure 128/60. Lungs: Basal crackles. Heart: S1, S2. Regular. Abdomen: Soft, nontender. Bowel sounds present. Extremities: 1+ edema. Wound noted. Laboratory Data: Reviewed. Assessment And Plan: 1. Sacral stage IV decubitus ulcer with ischial osteomyelitis, status post debridement on April 06. 2. Necrotizing fasciitis of the right buttock, extending to the ischial fascia. 3. Breast cancer, on immunotherapy. 4. Leukocytosis, improved. 5. Thrombocytosis. 6. Severe protein-calorie malnourishment. 7. Malignant pleural effusion. 8. Diabetes mellitus. Continue supportive care and wound care. We will follow the patient as needed. NF/MODL Voice ID: [id number] Report ID: [id number]
--- NOTE | 2025-04-16 14:02 | P.PN ---
Date of Service: 04/16/25 Subjective Awake and eating breakfast No new complaints, reports boyfriend will need to drive her to the facility and any appointments that require her to leave the facility Awaiting placement ROS 10 point ROS as noted above, otherwise negative Physical Exam General: Awake and oriented x3, afebrile, NAD Neck: Supple, trachea midline Respiratory: Nonlabored breathing, on RA Cardiovascular: Regular rate and rhythm Gastrointestinal: No tenderness on palpation Musculoskeletal: No tenderness Integumentary: Other (To right anterior chest wall, sacral area) Neurological: Normal speech, Normal affect Vitals Reviewed Problem list 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 ischial osteomyelitis Necrotizing fasciitis of the right buttock extending to the ischial fascia Breast cancer on immunotherapy Leukocytosis- improved Hyponatremia Malignant right moderate pleural effusion General weakness/deconditioning Diabetes mellitus type [id number] with hyperglycemia Plan 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 ischial osteomyelitis Necrotizing fasciitis of the right buttock extending to the ischial fascia Breast cancer on immunotherapy Leukocytosis-resolved Stopped vancomycin/cefepime, Started Merrem (04/09) Reports elevated white blood cell count outpatient with home health at the cancer center every send starting immunotherapy Dr. Malik following, wound cultures growing Proteus Mirabilis ESBL, Klebsiella Oxytoca, Enterobacter Aerogenes, 6 weeks of IV Merrem, Picc line placed Jose following Continue dressing to right breast Daily dressing changes: Remove all dressings from buttock wound irrigate with sterile saline then repack with Kerlix rolls x 2 damp with Vashe then cover with dry gauze skin to be covered with triple antibiotic ointment to all affected wounds sterile dressing to be applied over the top. Pending SNF for continued care Prefers private transportation to SNF Patient requesting we ensure valium to be continued as needed as SNF on med rec Hyponatremia Sodium improved and stable Malignant right moderate pleural effusion On room air, no acute distress noted Continue to monitor as needed with chest x-ray General weakness/deconditioning PT consultation Diabetes mellitus type [id number]-ivvgteebt with hyperglycemia ACHS Accu-Chek, sliding scale insulin DVT PPX: Lovenox Code status:full Discharge Plan: SNF Plan to discharge in: Greater than 2 days
[2025-04-16 19:35] VITALS: O2SAT 95
--- NOTE | 2025-04-16 22:28 | P.PN ---
Date of Service: 04/16/25 Subjective Pt denied problem with abx. states no concern or complaints. pt is not in any distress. No fever/chill Temp Pulse Resp BP Pulse Ox 98 F 100 H 18 144/65 H 98 04/16/25 20:00 04/16/25 20:00 04/16/25 20:04 04/16/25 20:00 04/16/25 20:04 Physical Examination - Physical Exam General: Alert, In no apparent distress, pale in appearance. HEENT: Atraumatic, PERRLA Neck: Supple, No LAD, Without JVD or thyroid abnormality Respiratory: CTA Cardiovascular: RRR Gastrointestinal: Normal bowel sounds, No tenderness, ND Integumentary: right breast mass and sacral PI stage IV, dressing to bilateral legs Neurological: Normal speech, Normal affect, Oriented x3 - Studies Laboratory Data (last 24 hrs) wbc 10.5, Hgb 9.9, platelet 527, BUN 13, cr 0.41 Microbiology 04/05/25 12:39 Blood - Blood Aerobic Blood Culture - Preliminary No growth in 24 hours. 04/05/25 12:39 Blood - Blood Anaerobic Blood Culture - Preliminary No growth in 24 hours. 04/05/25 12:58 Blood - Blood Aerobic Blood Culture - Preliminary No growth in 24 hours. 04/05/25 12:58 Blood - Blood Anaerobic Blood Culture - Preliminary No growth in 24 hours. 04/06/25 wound culture proteus mirabilis ESBL, Klebsiella Oxytoca 04/05/25: right lower leg proteus mirabilis ESBL 04/05/25: Wound right buttock: proteus mirabilis ESBL and Enterobacter Assessment and Planning 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 ischial osteomyelitis s/p debridement 04/06/25 Necrotizing fasciitis of the right buttock extending to the ischial fascia Breast cancer on immunotherapy Leukocytosis (improved) Thrombocytosis Severe protein calorie malnourishment Malignant right moderate pleural effusion Deconditioning Diabetes mellitus type [id number] with hyperglycemia continue merrem for a total of 6 weeks. tentative stop date may 21 wound and support care, offloading monitor wbc and fever trend case round and in agreement with Dr Malik
--- NOTE | 2025-04-17 09:14 | P.PN ---
Subjective Date of Service: 04/17/25 Chief Complaint: Weakness, sacral wound/osteomyelitis Subjective: Improving (Patient feels significant improvement and has ambulated.) Physical Examination - Vital Signs Temperature: 97.7 F Blood Pressure: 134/60 Pulse: 84 Respirations: 18 Pulse Ox (%): 96 - Physical Exam General: Alert, In no apparent distress, Oriented x3, Cooperative Integumentary: Other (Buttock sacral wounds continue to granulate slowly continue to have some fibrin buildup minimal slough around the edges well responsive to Santyl. No signs of infection or progression of disease.) Assessment And Plan - Current Problems (Diagnosis) (1) Necrotizing fasciitis Current Visit: Yes Status: Acute Plan: - Continue daily dressing changes with Santyl and Vashe packing to buttock wound. - Continue antibiotic coverage - Continue rehabilitation and physical therapy - Continue previous wound care for other body wounds including breast. - Continue medical management per primary team. - Follow-up with me in 1 to 2 weeks for ongoing wound care.
[2025-04-17] MEDS: HYDROCODONE/APAP 5/325 MG TAB PO PRN (13:47)
--- NOTE | 2025-04-17 16:15 | P.PN ---
Date of Service: 04/17/25 Subjective Doing well, continue with antibiotic schedule and wound care dressing change Clear for discharge when placement has been arranged ROS 10 point ROS as noted above, otherwise negative Physical Exam General: AAO x3, NAD Respiratory: Nonlabored breathing, on RA Cardiovascular: RRR, S1 S2 present Gastrointestinal: No tenderness on palpation Musculoskeletal: No tenderness Integumentary: Other (To right anterior chest wall, sacral area) Neurological: Normal speech, Normal affect Vitals Reviewed Problem list 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 ischial osteomyelitis Necrotizing fasciitis of the right buttock extending to the ischial fascia Breast cancer on immunotherapy Leukocytosis- improved Hyponatremia Malignant right moderate pleural effusion General weakness/deconditioning Diabetes mellitus type [id number]-vmqspwqry with hyperglycemia Plan 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 ischial osteomyelitis Necrotizing fasciitis of the right buttock extending to the ischial fascia Breast cancer on immunotherapy Leukocytosis-resolved Stopped vancomycin/cefepime, Started Merrem (04/09) Reports elevated white blood cell count outpatient with home health at the cancer center every send starting immunotherapy Dr. Malik following, wound cultures growing Proteus Mirabilis ESBL, Klebsiella Oxytoca, Enterobacter Aerogenes, 6 weeks of IV Merrem, Picc line placed Jose following Continue dressing to right breast Daily dressing changes: Remove all dressings from buttock wound irrigate with sterile saline then repack with Kerlix rolls x 2 damp with Vashe then cover with dry gauze skin to be covered with triple antibiotic ointment to all affected wounds sterile dressing to be applied over the top. Pending SNF for continued care Prefers private transportation to SNF Patient requesting we ensure valium to be continued as needed as SNF on med rec Hyponatremia Sodium improved and stable Malignant right moderate pleural effusion On room air, no acute distress noted Continue to monitor as needed with chest x-ray General weakness/deconditioning PT consultation Diabetes mellitus type [id number]-[id number]-qbqslinte with hyperglycemia ACHS Accu-Chek, sliding scale insulin DVT PPX: Lovenox Code status:full Discharge Plan: SNF when arranged
--- NOTE | 2025-04-18 13:24 | P.PN ---
Date of Service: 04/18/25 Subjective Good appetite, no new complaints Clear for discharge when placement has been arranged ROS 10 point ROS as noted above, otherwise negative Physical Exam General: AAO x3, NAD Respiratory: Nonlabored breathing, on RA Cardiovascular: RRR, S1 S2 present Gastrointestinal: No tenderness on palpation Musculoskeletal: No tenderness Integumentary: Other (To right anterior chest wall, sacral area) Neurological: Normal speech, Normal affect Vitals Reviewed Problem list 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 ischial osteomyelitis Necrotizing fasciitis of the right buttock extending to the ischial fascia Breast cancer on immunotherapy Leukocytosis- improved Hyponatremia Malignant right moderate pleural effusion General weakness/deconditioning Diabetes mellitus type [id number]-vcrdceejg with hyperglycemia Plan 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 ischial osteomyelitis Necrotizing fasciitis of the right buttock extending to the ischial fascia Breast cancer on immunotherapy Leukocytosis-resolved Stopped vancomycin/cefepime, Started Merrem (04/09) Reports elevated white blood cell count outpatient with home health at the cancer center every send starting immunotherapy Dr. Malik following, wound cultures growing Proteus Mirabilis ESBL, Klebsiella Oxytoca, Enterobacter Aerogenes, 6 weeks of IV Merrem, Picc line placed Jose following Continue dressing to right breast Daily dressing changes: Remove all dressings from buttock wound irrigate with sterile saline then repack with Kerlix rolls x 2 damp with Vashe then cover with dry gauze skin to be covered with triple antibiotic ointment to all affected wounds sterile dressing to be applied over the top. Pending SNF for continued care Prefers private transportation to SNF Patient requesting we ensure valium to be continued as needed as SNF on med rec Hyponatremia Sodium improved and stable Malignant right moderate pleural effusion On room air, no acute distress noted Continue to monitor as needed with chest x-ray General weakness/deconditioning PT consultation Diabetes mellitus type [id number]-mynuwrf-yryfjygee with hyperglycemia ACHS Accu-Chek, sliding scale insulin DVT PPX: Lovenox Code status:full Discharge Plan: SNF when arranged
[2025-04-18] MEDS ORDERED: ACETAMINOPHEN 325 MG TABLET PO PRN (16:28)
[2025-04-18] MEDS: DOCUSATE NA 100 MG CAP PO ONE (17:58)
[2025-04-18] MEDS: SIMETHICONE 80 MG CHEWABLE TAB PO SCH (17:58)
[2025-04-18] MEDS ORDERED: SIMETHICONE 80 MG CHEWABLE TAB PO SCH (21:00)
[2025-04-19] MEDS: LACTOBACILLUS/ACIDOPHILUS TAB PO SCH (10:19)
[2025-04-19 10:28] VITALS: BP 138/64; TEMP 97.4
--- NOTE | 2025-04-19 13:32 | P.DS ---
Admission Date: 04/05/25 Discharge Date: 04/19/25 Disposition: ROUTINE DISCHARGE Discharge Condition: GOOD Reason for Admission: Weakness, sacral wound/osteomyelitis Brief History of Present Illness: Diagnosis 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 ischial osteomyelitis Necrotizing fasciitis of the right buttock extending to the ischial fascia Breast cancer on immunotherapy Leukocytosis- improved Hyponatremia Malignant right moderate pleural effusion General weakness/deconditioning Diabetes mellitus type [id number]-mabeind-lpwffcdjo with hyperglycemia HPI 04/05/2025 60-year-old female with history of breast cancer on immunotherapy currently, [id number] presents to the emergency department chief complaint of generalized weakness. She reports has been unable to get up or walk recently feeling lethargic. She is pale. Patient was evaluated in the emergency department her labs are significant for marked leukocytosis with a white blood cell count of 30 hemoglobin of 10 hematocrit 31.4 sodium 126 chloride 89 glucose 232 lactic acid 2.0 Chest x-ray shows moderate right pleural effusion which is malignant in nature and known to patient, CT of the abdomen pelvis was performed which revealed moderate right pleural effusion, large right breast mass with smaller soft tissue masses anterior subcutaneous tissues of the lower chest, ulceration subcutaneous tissues right buttocks. Cortical irregularity right ischium could indicate early osteomyelitis. Patient reports that she is aware of an elevated white blood cell count ever since she started immunotherapy although she is not sure of the numbers, not available for review in EMR, she states she gets her labs done with home health and they are reported to the cancer center. Patient admitted for further ev aluation management of weakness, sacral wound with possible ischial osteomyelitis I discussed the case with general surgery that she follows outpatient, they will see her in the hospital in the morning Hospital Course: Heather has had a lengthy hospital stay. General surgery and infectious disease have been thoroughly involved to provide care for multiple wounds more s pecifically stage IV sacral decubitus ulceration with possible osteomyelitis. These wounds are needing six weeks of IV antibiotics, She reports she does not have anyone at her home that can appropriately administer the IV antibiotics and provide wound care. Social work has located a placement option that will provide a private room, purewisk, daily dressing changes, and administer IV antibiotics. She has tolerated IV antibiotics, wound cultures were followed and antibiotic course was adjusted with infectious disease recommendations followed. Dr. Garcia has provided surgical intervention and wound care reccomendations. She requested her boyfriend to provide transportation to the SNF location. On 04/19/25, Patient was seen on morning rounds hemodynamically stable, Dr. Garcia has cleared her for discharge. Social work has arranged for Heather to discharge to the [facility]. 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 ischial osteomyelitis Necrotizing fasciitis of the right buttock extending to the ischial fascia Breast cancer on immunotherapy Leukocytosis-resolved Patient was seen by Dr. Malik and Dr. Garcia Six week of Merrem via PICC line , started (04/09) required Patient reports elevated white blood cell count outpatient with home health at the cancer center every send starting immunotherapy Wound cultures growing Proteus Mirabilis ESBL, Klebsiella Oxytoca, Enterobacter Aerogenes, Continue dressing to right breast Daily dressing changes: Remove all dressings from buttock wound irrigate with sterile saline then repack with Kerlix rolls x 2 damp with Vashe then cover with dry gauze skin to be covered with triple antibiotic ointment to all affected wounds sterile dressing to be applied over the top. Hyponatremia Sodium stablized with gentle IVF Malignant right moderate pleural effusion No acute distress or oxygen this admission General weakness/deconditioning Patient worked with physical therapy Diabetes mellitus type 1wpj-pbvrokl-xhjxeeesn with hyperglycemia Serum glucose managed Physical Exam General: AAO x3, NAD Respiratory: on RA Cardiovascular: S1 S2 present, regular rate and rhythm Gastrointestinal: No tenderness on palpation Musculoskeletal: No tenderness to palpation Integumentary: Other (To right anterior chest wall, sacral area) Neurological: Normal speech, Normal affect Vital Signs/Physical Exam: Temp Pulse Resp BP Pulse Ox 97.4 F 82 18 138/64 98 04/19/25 08:00 04/19/25 08:00 04/19/25 08:00 04/19/25 08:00 04/19/25 08:00 Laboratory Data at Discharge: WBC 10.50 thou/uL (4.3-10.9) 04/14/25 05:40 Hgb 9.9 g/dL (12.0-15.0) L 04/14/25 05:40 Hct 31.0 % (36.0-45.0) L 04/14/25 05:40 Plt Count 527 thou/uL (152-406) H 04/14/25 05:40 PT 15.6 SECONDS (10-13.0) H 04/05/25 12:58 INR 1.39 04/05/25 12:58 APTT 30.4 SECONDS (27.2-37.4) 04/05/25 12:58 Sodium 133 mEq/L (136-145) L 04/14/25 05:40 Potassium 4.1 mEq/L (3.5-5.1) 04/14/25 05:40 BUN 13 mg/dL (7-18) 04/14/25 05:40 Creatinine 0.41 mg/dL (0.55-1.02) L 04/14/25 05:40 Glucose 170 mg/dL (74-106) H 04/14/25 05:40 Phosphorus 2.5 mg/dL (2.5-4.9) 04/14/25 05:40 Magnesium 2.0 mg/dL (1.6-2.4) 04/14/25 05:40 Total Bilirubin 0.3 mg/dL (0.2-1.0) 04/05/25 12:58 AST 16 U/L (15-37) 04/05/25 12:58 ALT < 14 U/L (13-56) 04/05/25 12:58 Alkaline Phosphatase 117 U/L (45-117) 04/05/25 12:58 Home Medications: Sitagliptin Phos/Metformin HCl [Janumet Xr 100-1,000 mg Tablet] 1 tab PO DAILY AT SUPPER 10/23/23 lisinopriL [Lisinopril] 10 mg PO DAILY 04/06/25 Acidophilus/Bulgaricus [Lactinex Tablet Chewable] 1 each PO DAILY 30 Days #30 tab.chew 04/19/25 Collagenase [Santyl Ointment*] 1 appl TOP DAILY 30 Days #1 tube 04/19/25 Hydrocodone 7.5/APAP 325 [[place] 7.5/325 mg] 1 tab PO Q6H PRN #15 tab 04/19/25 Johny [Johny*] 1 pkt PO BID 30 Days #60 packet 04/19/25 Simethicone [Mylicon*] 80 mg PO TID PRN 30 Days #90 tab 04/19/25 diazePAM [Valium*] 5 mg PO Q8H PRN 14 Days #42 tab 04/19/25 lidocaine HCL [Glydo] 6 ml TOP DAILY 30 Days #30 syr 04/19/25 New Medications: lidocaine HCL [Glydo] 6 ml TOP DAILY 30 Days #30 syr Johny [Johny*] 1 pkt PO BID 30 Days #60 packet Acidophilus/Bulgaricus [Lactinex Tablet Chewable] 1 each PO DAILY 30 Days #30 tab.chew Simethicone [Mylicon*] 80 mg PO TID PRN 30 Days #90 tab PRN Reason: gas Hydrocodone 7.5/APAP 325 [[place] 7.5/325 mg] 1 tab PO Q6H PRN #15 tab PRN Reason: Pain Collagenase [Santyl Ointment*] 1 appl TOP DAILY 30 Days #1 tube diazePAM [Valium*] 5 mg PO Q8H PRN 14 Days #42 tab PRN Reason: Anxiety Physician Discharge Instructions: 1. Please call and schedule a follow-up appointment with your PCP in 3-5 days - Please follow-up with your PCP for medication refills/adjustments 2. Please call and schedule a follow-up appointment with Dr. Garcia in one- two weeks -Follow up for on-going wound care 3. Continue diabetic diet 4. activity restrictions fall precautions 5. Return to the ED if symptoms worsen New medications Valium 5 mg p.o. every 8 hours as needed x 14 days Santillo daily application Mylicon 80 mg 3 times daily as needed for gas Lactinex daily Johny 1 pack twice daily Glydo 6 mL/syringe, daily application, do not ingest IV antibiotics: Merrem 1000 mg IVPB 3 times daily via PICC with home health with group home. Flush PICC with 10 ml normal saline before and after medication administration and with 20 ml after blood draws. CBC and BMP weekly. Call results to PCP. Remove PICC after course of antibiotics complete. Antibiotic end date May 21 Daily dressing changes: Remove all dressings from buttock wound irrigate with sterile saline then repack with Kerlix rolls x 2 damp with Vashe then cover with dry gauze skin to be covered with triple antibiotic ointment to all affected wounds sterile dressing to be applied over the top. Wound care for other body wounds including breast daily Diet: ADA Followup: Bree Muñoz NP [Primary Care Provider] - Dany Garcia MD [ACTIVE - CAN ADMIT] -
--- NOTE | 2025-04-19 14:36 | P.PN ---
Date of Service: 04/19/25 Subjective Pt denied problem with abx. states no concern or complaints. pt is not in any distress. No fever/chill Temp Pulse Resp BP Pulse Ox 97.4 F 82 18 138/64 98 04/19/25 08:00 04/19/25 08:00 04/19/25 08:00 04/19/25 08:00 04/19/25 08:00 Physical Examination - Physical Exam General: Alert, In no apparent distress, pale in appearance. HEENT: Atraumatic, PERRLA Neck: Supple, No LAD, Without JVD or thyroid abnormality Respiratory: CTA Cardiovascular: RRR Gastrointestinal: Normal bowel sounds, No tenderness, ND Integumentary: right breast mass and sacral PI stage IV, dressing to bilateral legs Neurological: Normal speech, Normal affect, Oriented x3 - Studies Laboratory Data (last 24 hrs) wbc 10.5, Hgb 9.9, platelet 527, BUN 13, cr 0.41 Microbiology 04/05/25 12:39 Blood - Blood Aerobic Blood Culture - Preliminary No growth in 24 hours. 04/05/25 12:39 Blood - Blood Anaerobic Blood Culture - Preliminary No growth in 24 hours. 04/05/25 12:58 Blood - Blood Aerobic Blood Culture - Preliminary No growth in 24 hours. 04/05/25 12:58 Blood - Blood Anaerobic Blood Culture - Preliminary No growth in 24 hours. 04/06/25 wound culture proteus mirabilis ESBL, Klebsiella Oxytoca 04/05/25: right lower leg proteus mirabilis ESBL 04/05/25: Wound right buttock: proteus mirabilis ESBL and Enterobacter Assessment and Planning 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 ischial osteomyelitis s/p debridement 04/06/25 Necrotizing fasciitis of the right buttock extending to the ischial fascia Breast cancer on immunotherapy Leukocytosis (improved) Thrombocytosis (improving) Severe protein calorie malnourishment Malignant right moderate pleural effusion Deconditioning Diabetes mellitus type 9gji-gupfras-semcxagbs with hyperglycemia continue merrem for a total of 6 weeks. tentative stop date may 21 wound and support care, offloading monitor wbc and fever trend case round and in agreement with Dr Malik
== END 2025-04-19 16:18 | DRG 463 ==
LOC: ER 11:51 → ERHOLD 17:14 → 2ND 19:02
PROVIDERS: ADMIT Internal Medicine; ATTEND Internal Medicine
PROC: 0JB90ZZ Excision of Buttock Subcutaneous Tissue and Fascia, Open Approach (ICD-10-PCS; principal; 2025-04-06 13:15)
PROC: 0JB90ZZ Excision of Buttock Subcutaneous Tissue and Fascia, Open Approach (ICD-10-PCS; 2025-04-08)
PROC: 02HV33Z Insertion of Infusion Device into Superior Vena Cava, Percutaneous Approach (ICD-10-PCS; 2025-04-09)
DX: M72.6 Necrotizing fasciitis (principal); E43 Unspecified severe protein-calorie malnutrition; L89.154 Pressure ulcer of sacral region, stage 4; E87.1 Hypo-osmolality and hyponatremia; J91.0 Malignant pleural effusion; Z16.12 Extended spectrum beta lactamase (ESBL) resistance; M86.18 Other acute osteomyelitis, other site; E11.52 Type 2 diabetes mellitus with diabetic peripheral angiopathy with gangrene; E11.69 Type 2 diabetes mellitus with other specified complication; E11.65 Type 2 diabetes mellitus with hyperglycemia; C50.919 Malignant neoplasm of unspecified site of unspecified female breast; D75.839 Thrombocytosis, unspecified; I10 Essential (primary) hypertension; B96.4 Proteus (mirabilis) (morganii) as the cause of diseases classified elsewhere; B96.89 Other specified bacterial agents as the cause of diseases classified elsewhere; Z88.0 Allergy status to penicillin; Z88.1 Allergy status to other antibiotic agents; Z79.52 Long term (current) use of systemic steroids; Z68.28 Body mass index [BMI] 28.0-28.9, adult; Z79.899 Other long term (current) drug therapy; Z90.710 Acquired absence of both cervix and uterus
CPT/HCPCS: 36415; 71045; 74177; 80048; 80053; 80202; 82947; 83036; 83605; 83735; 84100; 84145; 85025; 85610; 85730; 87040; 87070; 87075; 87077; 87186; 87205; 88304; 93005; 96365; 96366; 97110; 97116; 97161; 97530; 99285; J0690; J0692; J1200; J1650; J1815; J2003; J2185; J2250; J2270; J2371; J2405; J2704; J3010; J3370; J3480; J3590; J7030; J7040; J7050; Q9967